=== PATIENT | female | born 1960 | race Native Hawaiian/Other Pacific Islander ===

== ENCOUNTER 2017-02-03 22:34 | Emergency (ER) | payer BC, OTHER ==
[~2017-02-03] VITALS: Ht 162.6 cm; Wt 74.8 kg
[~2017-02-03 22:34] MED LIST: DIAZ5TAB PO
[2017-02-03] MEDS ORDERED: ONDANSETRON 4 MG/2 ML VIAL IV ONE (23:15)
[2017-02-03] MEDS ORDERED: MORPHINE SULFATE 2 MG/1 ML DISP.SYRIN IV ONE (23:15)
[2017-02-03] MEDS ORDERED: PANTOPRAZOLE SODIUM 40 MG VIAL IV ONE (23:15)
[2017-02-03] MEDS ORDERED: DEXAMETHASONE SOD PHOSPHATE 4 MG INJ IV ONE (23:15)
[2017-02-03] MEDS ORDERED: DEXAMETHASONE SOD PHOSPHATE 4 MG INJ ONE (23:25)
[2017-02-03] MEDS ORDERED: ONDANSETRON 4 MG/2 ML VIAL ONE (23:25)
[2017-02-03] MEDS ORDERED: PANTOPRAZOLE SODIUM 40 MG VIAL ONE (23:25)
[2017-02-03] MEDS ORDERED: MORPHINE SULFATE 2 MG/1 ML DISP.SYRIN ONE (23:25)
[2017-02-03 23:34] LABS: HEMATOCRIT 30.5 % (37-47); HEMOGLOBIN 9.2 G/DL (12.0-16.0); MEAN CORPUSCULAR HEMOGLOBIN 17.2 UUG (27.0-31.0); MEAN CORPUSCULAR HGB CONC 30 g/dL (32.0-37.0); MEAN CORPUSCULAR VOLUME 57.1 FL (81.0-99.0); PLATELET COUNT (AUTO) 186 K/UL (150-450); RED BLOOD CELL COUNT(AUTO) 5.35 MIL/UL (4.2-5.4)
[2017-02-03 23:38] LABS: BILIRUBIN,DIRECT 0.1 mg/dL (0.0-0.2); BILIRUBIN,TOTAL 0.6 mg/dL (0.2-1.0); CREATININE 0.9 mg/dL (0.6-1.3); POTASSIUM 3.7 mmol/L (3.5-5.1); TOTAL PROTEIN, SERUM 6.9 g/dL (6.4-8.2)
[2017-02-03] MEDS ORDERED: diphenhydrAMINE 50 MG/1 ML VIAL IV ONE (23:45)
[2017-02-03] MEDS ORDERED: METOCLOPRAMIDE HCL 10 MG/2 ML VIAL ONE (23:45)
[2017-02-03] MEDS ORDERED: METOCLOPRAMIDE HCL 10 MG/2 ML VIAL IV ONE (23:45)
[2017-02-03] MEDS ORDERED: diphenhydrAMINE 50 MG/1 ML VIAL ONE (23:45)
[2017-02-03] MEDS ORDERED: MORPHINE SULFATE 4 MG/1 ML DISP.SYRIN IV ONE (23:45)
[2017-02-03] MEDS ORDERED: MORPHINE SULFATE 4 MG/1 ML DISP.SYRIN ONE (23:57)
[2017-02-04 00:15] LABS: BAND % (MANUAL) 1 % (0-10); EOSINOPHILS % (MANUAL) 4 % (0-8); LYMPHOCYTES % (MANUAL) 43 % (20-40); METAMYELOCYTES % 1 % (0-1); MONOCYTES % (MANUAL) 2 % (2-10); NEUTROPHILS % (MANUAL) 49 % (42-75)
== END 2017-02-04 01:39 | disposition home or self-care (01) ==
LOC: ER 22:35
DX: M25.412 Effusion, left shoulder (principal); D56.9 Thalassemia, unspecified; Z90.49 Acquired absence of other specified parts of digestive tract; Z88.1 Allergy status to other antibiotic agents; Z88.2 Allergy status to sulfonamides
CPT/HCPCS: 36415; 70030-TC; 71010; 73030; 85025; A4663; C9113; J1100; J1200; J2270; J2405; J2765

== ENCOUNTER 2017-06-25 11:17 | Emergency (ER) | payer BC, OTHER ==
[~2017-06-25] VITALS: Ht 167.6 cm; Wt 74.8 kg
--- NOTE | 2017-06-25 14:11 | NUR ---
MD is at bedside evalauating the patient, pending MD orders at this time
[2017-06-25] MEDS ORDERED: KETOROLAC TROMETHAMINE 60 MG INJ IM ONE ×2 (14:14→14:39)
[2017-06-25] MEDS ORDERED: HYDROCODONE/APAP 5-325MG TABLET PO ONE (14:15)
[2017-06-25] MEDS ORDERED: HYDROCODONE/APAP 5-325MG TABLET ONE (14:39)
--- NOTE | 2017-06-25 15:26 | NUR ---
Patient is resting comfortably in bed with eyes closed, decreased back pains expressed, pending disposition
--- NOTE | 2017-06-25 16:29 | NUR ---
MSE COMPLETED, PT D/C'D HOME, ACI/RX X 2 AND WORK NOTE GIVEN. PT AMBULATED W/O DIFF/TOOK ALL BELONGINGS.
[2017-06-25 16:31] VITALS: BP 150/78
== END 2017-06-25 16:31 | disposition home or self-care (01) ==
LOC: ER 11:18
DX: S33.5XXA Sprain of ligaments of lumbar spine, initial encounter (principal); S30.0XXA Contusion of lower back and pelvis, initial encounter; D56.9 Thalassemia, unspecified; Z88.1 Allergy status to other antibiotic agents; Z88.2 Allergy status to sulfonamides; W01.0XXA Fall on same level from slipping, tripping and stumbling without subsequent striking against object, initial encounter; Y92.89 Other specified places as the place of occurrence of the external cause; Y93.89 Activity, other specified; Y99.8 Other external cause status
CPT/HCPCS: 72100; 72220; 96372; 99284; A4663; J1885

== ENCOUNTER 2017-10-20 11:24 | Outpatient (CLI) | payer BC, OTHER ==
[2017-10-20 12:32] LABS: *BILIRUBIN,URIN NEGATIVE (NEGATIVE); *BLOOD, URINE NEGATIVE (NEGATIVE); *CLARITY,URINE CLEAR (CLEAR); *COLOR,URINE YELLOW (YELLOW); *KETONES,URINE NEGATIVE (NEGATIVE); *PROTEIN,URINE NEGATIVE (NEGATIVE); *UROBILINOGEN,URINE 0.2 E.U./dl (NORMAL); LEUKOCYTE ESTERASE ,URINE 1+ (NEGATIVE); NITRITE, URINE NEGATIVE (NEGATIVE); PH,URINE 6.5 (5.0-8.0); UGLUCOSE NEGATIVE (NEGATIVE)
[2017-10-20 12:43] LABS: BASOPHILS % (AUTO) 0.5 % (0.0-2.0); EOSINOPHILS # (AUTO) 0.2 K/uL (0.0-0.7); HEMATOCRIT 30.1 % (31.2-41.9); HEMOGLOBIN 9.2 g/dL (10.9-14.3); LYMPHOCYTES # (AUTO) 2.4 K/uL (20.0-40.0); LYMPHOCYTES % (AUTO) 46.9 % (20.5-51.5); MEAN CORPUSCULAR HGB CONC 31 g/dL (32.3-35.6); MONOCYTES # (AUTO) 0.3 K/uL (2.0-10.0); MONOCYTES % (AUTO) 5.8 % (0.0-11.0); NEUTROPHILS # (AUTO) 2.2 K/uL (1.8-8.9); NEUTROPHILS % (AUTO) 43.8 % (38.5-71.5); RED BLOOD CELL COUNT(AUTO) 5.41 MIL/uL (3.63-4.92)
[2017-10-20 12:44] LABS: BACTERIA,URINE NONE SEEN /HPF (NONE SEEN); RBC,URINE 0-3 /HPF (0-3); SQUAMOUS EPITHELIAL CELL,UR FEW /HPF (NONE SEEN)
[2017-10-20 12:51] LABS: MEAN CORPUSCULAR VOLUME 55.6 fL (75.5-95.3); PLATELET COUNT (AUTO) 207 K/uL (179-408); WHITE BLOOD COUNT (AUTO) 5.1 K/uL (3.8-11.8)
[2017-10-20 13:13] LABS: THYROID STIMULATING HORMONE 2.046 mIU/mL (0.358-3.740)
[2017-10-20 13:28] LABS: BILIRUBIN,TOTAL 0.9 mg/dL (0.2-1.0); CREATININE 0.7 mg/dL (0.6-1.3); TOTAL PROTEIN, SERUM 7.5 g/dL (6.4-8.2); URIC ACID 5.8 mg/dL (2.6-6.0)
[2017-10-20 13:33] LABS: EOSINOPHILS % (MANUAL) 1 % (0-8); LYMPHOCYTES % (MANUAL) 46 % (20-40); MONOCYTES % (MANUAL) 6 % (2-10); NEUTROPHILS % (MANUAL) 47 % (42-75)
[2017-10-21 05:10] LABS: VIT D, 25-HYDROXY 14.7 ng/mL (30.0-100.0)
== END 2017-10-21 23:59 | disposition home or self-care (01) ==
LOC: LAB 11:24
PROVIDERS: ATTEND Internal Medicine
DX: Z00.01 Encounter for general adult medical examination with abnormal findings (principal)
CPT/HCPCS: 36415; 82306; 82746; 83550; 84443; 84480; 84550; 85025

== ENCOUNTER 2017-12-24 22:14 | Emergency (ER) | payer BC, OTHER ==
[~2017-12-24] VITALS: Ht 162.6 cm; Wt 74.8 kg
--- NOTE | 2017-12-24 22:18 | NUR ---
DR DA MENDEZ MD AT BEDSIDE FOR MSE.
[2017-12-24] MEDS ORDERED: IV NORMAL SALINE 1000 ML BAG IV ONE (22:30)
[2017-12-24] MEDS ORDERED: ONDANSETRON 4 MG/2 ML VIAL IV ONE (22:30)
--- NOTE | 2017-12-24 22:40 | NUR ---
LAB AT PT BEDSIDE FOR BLOOD DRAW.
[2017-12-24] MEDS ORDERED: ONDANSETRON 4 MG/2 ML VIAL ONE ×2 (22:48→23:34)
[2017-12-24 22:59] LABS: BILIRUBIN,DIRECT 0.2 mg/dL (0.0-0.2); BILIRUBIN,TOTAL 0.8 mg/dL (0.2-1.0); CREATININE 0.7 mg/dL (0.6-1.3); POTASSIUM 4.1 mmol/L (3.5-5.1); TOTAL PROTEIN, SERUM 7.1 g/dL (6.4-8.2)
[2017-12-24 23:01] LABS: BASOPHILS % (AUTO) 0.4 % (0.0-2.0); EOSINOPHILS % (AUTO) 0.8 % (0.0-7.0); HEMATOCRIT 29.8 % (31.2-41.9); HEMOGLOBIN 8.8 g/dL (10.9-14.3); LYMPHOCYTES # (AUTO) 2.7 K/uL (20.0-40.0); LYMPHOCYTES % (AUTO) 55.4 % (20.5-51.5); MEAN CORPUSCULAR HEMOGLOBIN 16.3 uug (24.7-32.8); MEAN CORPUSCULAR VOLUME 55.1 fL (75.5-95.3); MONOCYTES # (AUTO) 0.2 K/uL (2.0-10.0); MONOCYTES % (AUTO) 3.3 % (0.0-11.0); NEUTROPHILS % (AUTO) 40.1 % (38.5-71.5); PLATELET COUNT (AUTO) 181 K/uL (179-408); RED BLOOD CELL COUNT(AUTO) 5.42 MIL/uL (3.63-4.92); WHITE BLOOD COUNT (AUTO) 4.9 K/uL (3.8-11.8)
[2017-12-24 23:12] LABS: MEAN CORPUSCULAR HGB CONC 31 g/dL (32.3-35.6)
[2017-12-24] MEDS ORDERED: ONDANSETRON IV *ER 4 MG/2 ML VIAL IV ONE (23:30)
[2017-12-24] MEDS ORDERED: KETOROLAC TROMETHAMINE 30 MG INJ IVP ONE (23:30)
[2017-12-24] MEDS ORDERED: KETOROLAC TROMETHAMINE 30 MG INJ ONE (23:34)
--- NOTE | 2017-12-25 00:09 | NUR ---
Patient discharged to home in stable conditon. Written and verbal after care instructions given. Patient verbalizes understanding of instructions. IV removed, w/ catheter intact. Pressure applied to site. No bleeding noted. Pt took all personal belongings.
[2017-12-25 00:21] LABS: BAND % (MANUAL) 2 % (0-10); LYMPHOCYTES % (MANUAL) 30 % (20-40); METAMYELOCYTES % 1 % (0-1); MONOCYTES % (MANUAL) 2 % (2-10); NEUTROPHILS % (MANUAL) 65 % (42-75)
[2017-12-25 00:41] VITALS: BP 125/76
== END 2017-12-25 00:41 | disposition home or self-care (01) ==
LOC: ER 22:17
DX: G43.909 Migraine, unspecified, not intractable, without status migrainosus (principal); Z90.49 Acquired absence of other specified parts of digestive tract; Z88.2 Allergy status to sulfonamides; Z88.1 Allergy status to other antibiotic agents
CPT/HCPCS: 36415; 80048; 80076; 83690; 85025; 96361; 96374; 96375; 96376; 99284; A4663; J1885; J2405 ×2; J7030

== ENCOUNTER 2018-05-05 19:44 | Emergency (ER) | payer BC, OTHER ==
[~2018-05-05] VITALS: Ht 160 cm; Wt 77.1 kg
[2018-05-05] MEDS ORDERED: HYDROMORPHONE 2 MG/1 ML DISP.SYRIN ONE (20:15)
[2018-05-05] MEDS ORDERED: HYDROMORPHONE 1 MG/1 ML DISP.SYRIN IM ONE (20:15)
[2018-05-05] MEDS ORDERED: ONDANSETRON 4 MG/2 ML VIAL ONE (20:15)
[2018-05-05] MEDS ORDERED: ONDANSETRON 4 MG/2 ML VIAL IM ONE (20:15)
--- NOTE | 2018-05-05 20:24 | NUR ---
Patient discharged to home in stable conditon. Written and verbal after care instructions given. Patient verbalizes understanding of instructions.
== END 2018-05-05 20:24 | disposition home or self-care (01) ==
LOC: ER 19:46
DX: M25.512 Pain in left shoulder (principal); Z90.49 Acquired absence of other specified parts of digestive tract; Z88.2 Allergy status to sulfonamides; Z88.1 Allergy status to other antibiotic agents
CPT/HCPCS: 96372 ×2; 99284; J1170; J2405; A4663

== ENCOUNTER 2018-09-14 10:04 | Outpatient (CLI) | payer BC, OTHER ==
[2018-09-14 10:41] LABS: *BILIRUBIN,URIN NEGATIVE (NEGATIVE); *BLOOD, URINE NEGATIVE (NEGATIVE); *CLARITY,URINE CLEAR (CLEAR); *COLOR,URINE LIGHT YELLOW (YELLOW); *KETONES,URINE NEGATIVE (NEGATIVE); *UROBILINOGEN,URINE 0.2 E.U./dl (NORMAL); LEUKOCYTE ESTERASE ,URINE TRACE (NEGATIVE); NITRITE, URINE NEGATIVE (NEGATIVE); PH,URINE 5.5 (5.0-8.0); UGLUCOSE NEGATIVE (NEGATIVE)
[2018-09-14 10:48] LABS: HEMOGLOBIN 8.9 g/dL (10.9-14.3)
[2018-09-14 11:01] LABS: SQUAMOUS EPITHELIAL CELL,UR FEW /HPF (NONE SEEN)
[2018-09-14 11:02] LABS: MUCUS,URINE FEW /LPF (0-FEW)
[2018-09-14 11:03] LABS: BACTERIA,URINE NONE SEEN /HPF (NONE SEEN); RBC,URINE 0-3 /HPF (0-3)
[2018-09-14 11:04] LABS: THYROID STIMULATING HORMONE 1.901 mIU/mL (0.358-3.740)
[2018-09-14 11:20] LABS: BILIRUBIN,TOTAL 0.6 mg/dL (0.2-1.0); CREATININE 0.7 mg/dL (0.6-1.3); POTASSIUM 3.8 mmol/L (3.5-5.1); TOTAL PROTEIN, SERUM 7.4 g/dL (6.4-8.2)
[2018-09-14 11:24] LABS: HEMATOCRIT 29.1 % (31.2-41.9); MEAN CORPUSCULAR HGB CONC 31 g/dL (32.3-35.6); MEAN CORPUSCULAR VOLUME 55.4 fL (75.5-95.3); RED BLOOD CELL COUNT(AUTO) 5.26 MIL/uL (3.63-4.92)
[2018-09-14 11:58] LABS: LYMPHOCYTES % (MANUAL) 40 % (20-40); NEUTROPHILS % (MANUAL) 55 % (42-75); PLATELET COUNT (AUTO) 217 K/uL (179-408)
[2018-09-14 11:59] LABS: EOSINOPHILS % (MANUAL) 2 % (0-8); MONOCYTES % (MANUAL) 1 % (2-10)
[2018-09-20 09:06] LABS: *VITAMIN D 25-OH VIT D 13 ng/mL (.); *VITAMIN D 25-OH, D2 <1.0 ng/mL (.); *VITAMIN D 25-OH, D3 13 ng/mL (.)
== END 2018-09-14 23:59 | disposition home or self-care (01) ==
LOC: LAB 10:04
DX: R53.83 Other fatigue (principal); R05 Cough
CPT/HCPCS: 36415; 71046; 83550; 84443; 84481; 85025

== ENCOUNTER 2018-10-02 09:33 | Outpatient (CLI) | payer BC, OTHER | END 2018-10-02 23:59 | disposition home or self-care (01) | LOC: RAD 09:33 | PROVIDERS: ATTEND Internal Medicine | DX: M79.89 Other specified soft tissue disorders (principal) | CPT/HCPCS: 73562 ==

== ENCOUNTER 2019-05-12 05:21 | Emergency (ER) | payer BC, OTHER ==
[~2019-05-12] VITALS: Ht 165.1 cm; Wt 72.1 kg
[2019-05-12] MEDS ORDERED: DIPHENOXYLATE HCL/ATROP SULF TABLET PO ONE (05:30)
[2019-05-12] MEDS ORDERED: DIPHENOXYLATE HCL/ATROP SULF TABLET ONE (05:33)
[2019-05-12] MEDS ORDERED: MORPHINE SULFATE 4 MG/1 ML DISP.SYRIN ONE (05:40)
[2019-05-12] MEDS ORDERED: MORPHINE SULFATE 2 MG/1 ML DISP.SYRIN ONE (05:40)
[2019-05-12] MEDS ORDERED: ONDANSETRON 4 MG/2 ML VIAL ONE (05:40)
[2019-05-12] MEDS ORDERED: DICYCLOMINE HCL LIQ 10 MG/5 ML UDC ONE (05:40)
[2019-05-12] MEDS ORDERED: IV LACTATED RINGERS SOLUTION 1,000 ML IV ONE (05:42)
[2019-05-12] MEDS ORDERED: ONDANSETRON 4 MG/2 ML VIAL IV ONE (05:45)
[2019-05-12] MEDS ORDERED: MORPHINE SULFATE 2 MG/1 ML DISP.SYRIN IV ONE (05:45)
[2019-05-12] MEDS ORDERED: DICYCLOMINE HCL LIQ 10 MG/5 ML UDC PO ONE (05:45)
[2019-05-12 06:12] LABS: BASOPHILS % (AUTO) 0.6 % (0.0-2.0); EOSINOPHILS # (AUTO) 0.1 K/uL (0.0-0.7); EOSINOPHILS % (AUTO) 1.2 % (0.0-7.0); HEMATOCRIT 32.6 % (31.2-41.9); HEMOGLOBIN 9.8 g/dL (10.9-14.3); LYMPHOCYTES # (AUTO) 2.7 K/uL (20.0-40.0); LYMPHOCYTES % (AUTO) 46.2 % (20.5-51.5); MEAN CORPUSCULAR HEMOGLOBIN 16.6 uug (24.7-32.8); MEAN CORPUSCULAR HGB CONC 30 g/dL (32.3-35.6); MEAN CORPUSCULAR VOLUME 55.2 fL (75.5-95.3); MONOCYTES # (AUTO) 0.4 K/uL (2.0-10.0); MONOCYTES % (AUTO) 6.4 % (0.0-11.0); NEUTROPHILS # (AUTO) 2.7 K/uL (1.8-8.9); NEUTROPHILS % (AUTO) 45.6 % (38.5-71.5); PLATELET COUNT (AUTO) 237 K/uL (179-408); RED BLOOD CELL COUNT(AUTO) 5.91 MIL/uL (3.63-4.92); WHITE BLOOD COUNT (AUTO) 5.9 K/uL (3.8-11.8)
[2019-05-12 06:26] LABS: CREATININE 0.8 mg/dL (0.6-1.3); POTASSIUM 3.5 mmol/L (3.5-5.1)
[2019-05-12 06:31] LABS: TOTAL PROTEIN, SERUM 7.7 g/dL (6.4-8.2)
[2019-05-12 06:32] LABS: BILIRUBIN,DIRECT 0.2 mg/dL (0.0-0.2)
[2019-05-12] MEDS ORDERED: SWABABLE VALVE TRANSFER SET EA MC ONE (06:37)
[2019-05-12] MEDS ORDERED: IOHEXOL 300MG/ML 100 ML INFUS..BTL ONE (06:37)
[2019-05-12] MEDS ORDERED: IV NORMAL SALINE 250 ML IV ONE (06:37)
--- NOTE | 2019-05-12 07:01 | NUR ---
Report given to Nilam BARTH
--- NOTE | 2019-05-12 07:14 | NUR ---
Pt back from CT, no c/o pain at this time.
--- NOTE | 2019-05-12 07:15 | NUR ---
IV fluid completed at 0715.
[2019-05-12 08:00] VITALS: BP 122/71
--- NOTE | 2019-05-12 08:00 | NUR ---
IV removed. Catheter intact and site benign. Pressure and 4x4 gauze applied to site. No bleeding noted.
[2019-05-12] MEDS ORDERED: LOPE2CAP40 PO (08:59)
--- NOTE | 2019-05-16 09:00 | NUR ---
LATE ENTRY: 05/12/19 LR 1000ML IV BOLUS GIVEN OVER 1HR ORDERED. START TIME: 545 COMPLETED: 645
== END 2019-05-12 08:07 | disposition home or self-care (01) ==
LOC: ER 05:21
DX: R19.7 Diarrhea, unspecified (principal); R10.33 Periumbilical pain; Z90.49 Acquired absence of other specified parts of digestive tract; Z88.2 Allergy status to sulfonamides; Z88.1 Allergy status to other antibiotic agents
CPT/HCPCS: 36415; 74177; 80048; 80076; 83690; 85025; 96361; 96374; 96375; 99284; J2270 ×2; J2405; J7120; Q9967; A4663; J7030; J7050

== ENCOUNTER 2019-05-12 08:52 | Inpatient (IN) | payer BC, OTHER ==
[~2019-05-12] VITALS: Ht 162.6 cm; Wt 73.5 kg
[2019-05-12] MEDS ORDERED: LOPE2CAP40 PO (08:59)
--- NOTE | 2019-05-12 09:03 | NUR ---
Dr Mccain at the bedside for MSE.
[2019-05-12] MEDS ORDERED: IV NORMAL SALINE 1000 ML BAG IV ONE ×2 (09:15→10:30)
--- NOTE | 2019-05-12 10:08 | NUR ---
Patient is resting comfortably in bed with eyes closed, NAD noted.
[2019-05-12] MEDS ORDERED: KETOROLAC TROMETHAMINE 30 MG INJ ONE (10:40)
[2019-05-12] MEDS ORDERED: KETOROLAC TROMETHAMINE 30 MG INJ IVP ONE (10:45)
--- NOTE | 2019-05-12 13:00 | NUR ---
received from ER awake alert and oriented per maco with c/o diarrhea and abdominal pain x 3 days after eating [place] food, no nausea/vomiting, tele applied- SR 80's, routine admission care rendered, initial assessment done, expalined plan of care- verbalized understanding, safety measures initiated, call light within reach
[2019-05-12 13:13] VITALS: BP 119/60
[2019-05-12] MEDS ORDERED: Z GUARD REMEDY PASTE 57 GM TUBE TOP PRN (13:15)
[2019-05-12] MEDS ORDERED: MORPHINE SULFATE 2 MG/1 ML DISP.SYRIN IV PRN (13:15)
[2019-05-12] MEDS ORDERED: MAGNESIUM HYDROXIDE 30 ML LIQUID UDC PO PRN (13:15)
[2019-05-12] MEDS ORDERED: ONDANSETRON 4 MG/2 ML VIAL IV PRN (13:15)
[2019-05-12] MEDS ORDERED: ACETAMINOPHEN 325 MG TABLET PO PRN (13:15)
[2019-05-12 13:28] LABS: IRON, SERUM 51 ug/dL (50-175)
[2019-05-12] MEDS ORDERED: METRONIDAZOLE 500 MG/NS 100ML 500 MG in PREMIXED 1 EACH IV SCH (14:00)
[2019-05-12] MEDS: METRONIDAZOLE 500 MG TABLET PO SCH ×2 (14:39→21:14)
[2019-05-12] MEDS: IV NS 1000 ML 1,000 ML IV PRN (14:48)
[2019-05-12 15:30] VITALS: BP 114/46
--- NOTE | 2019-05-12 15:30 | NUR ---
stool specimen sent to lab
--- NOTE | 2019-05-12 18:00 | NUR ---
refused dvt pumps
[2019-05-12 18:47] VITALS: BP_SYST 112; BP_SYST 99; BP_DIAS 48; BP_DIAS 54
[2019-05-12 18:48] VITALS: BP 118/55
--- NOTE | 2019-05-12 18:52 | NUR ---
had only one liquid stool this shift, no nausea and vomiting noted, all needs attended and met, call light within reach
--- NOTE | 2019-05-12 19:30 | NUR ---
Received pt in bed, awake alert, in no acute signs of distress. No c/o pain at this time.
[2019-05-12 19:53] VITALS: BP 103/50
[2019-05-12] MEDS: CIPROFLOXACIN HCL 250 MG TABLET PO SCH (20:09)
--- NOTE | 2019-05-13 01:00 | NUR ---
SR on tele. Hands off report to Jaimee michael.
[2019-05-13] MEDS: IV NS 1000 ML 1,000 ML IV PRN ×2 (04:37→18:07)
[2019-05-13 04:47] VITALS: BP 111/57
[2019-05-13] MEDS: METRONIDAZOLE 500 MG TABLET PO SCH ×3 (05:35→21:26)
[2019-05-13 07:29] LABS: MEAN CORPUSCULAR HEMOGLOBIN 16.7 uug (24.7-32.8); MEAN CORPUSCULAR HGB CONC 30 g/dL (32.3-35.6); PLATELET COUNT (AUTO) 173 K/uL (179-408); RED BLOOD CELL COUNT(AUTO) 4.67 MIL/uL (3.63-4.92)
[2019-05-13 07:33] LABS: HEMATOCRIT 25.7 % (31.2-41.9); HEMOGLOBIN 7.8 g/dL (10.9-14.3); WHITE BLOOD COUNT (AUTO) 3.1 K/uL (3.8-11.8)
[2019-05-13 07:36] LABS: THYROID STIMULATING HORMONE 1.831 mIU/mL (0.358-3.740)
[2019-05-13] MEDS: CIPROFLOXACIN HCL 250 MG TABLET PO SCH ×2 (08:13→21:28)
[2019-05-13] MEDS: HYDROCODONE/APAP 5-325MG TABLET PO PRN (08:14)
[2019-05-13 08:39] LABS: CREATININE 0.6 mg/dL (0.6-1.3); MAGNESIUM 1.6 mg/dL (1.8-2.4); POTASSIUM 3.7 mmol/L (3.5-5.1)
[2019-05-13] MEDS: MAGNESIUM SULFATE/D5W 100 ML IV SCH ×2 (11:07→12:14)
[2019-05-13 11:12] LABS: EOSINOPHILS % (MANUAL) 2 % (0-8); LYMPHOCYTES % (MANUAL) 47 % (20-40); MONOCYTES % (MANUAL) 5 % (2-10); NEUTROPHILS % (MANUAL) 45 % (42-75)
[2019-05-13 11:19] LABS: REACTIVE LYMPHOCYTES 1 % (0-0)
[2019-05-13 11:41] VITALS: BP 140/59
[2019-05-13 14:03] LABS: BILIRUBIN,DIRECT 0.2 mg/dL (0.0-0.2); BILIRUBIN,TOTAL 0.6 mg/dL (0.2-1.0)
[2019-05-13 15:52] VITALS: BP 122/46
--- NOTE | 2019-05-13 17:18 | NUR ---
Patient alert and oriented, ambulatory. No distress noted or complaints of pain. PRN [place] given x1 this morning for abdominal pain, relieved. Continues to have episodes of diarrhea. Denies any n/v. [place] 1.6 replaced today via IV. Abdominal ultrasound done today. Pending midline placement, IV fluids held r/t IV infiltrating and multiple PIV attempts. Ordered and warehouse stocker made aware. End of shift chart check done, will endorse care to oncoming shift.
[2019-05-13 18:06] LABS: HEMATOCRIT 27.2 % (31.2-41.9); HEMOGLOBIN 8.3 g/dL (10.9-14.3)
[2019-05-13 19:53] VITALS: BP 124/58
[2019-05-14] MEDS: IV NS 1000 ML 1,000 ML IV PRN ×2 (01:12→15:17)
[2019-05-14 04:00] VITALS: BP 124/57
[2019-05-14] MEDS: METRONIDAZOLE 500 MG TABLET PO SCH ×3 (05:38→21:10)
[2019-05-14 06:51] LABS: HEMATOCRIT 25.8 % (31.2-41.9); HEMOGLOBIN 7.9 g/dL (10.9-14.3); MEAN CORPUSCULAR HEMOGLOBIN 16.6 uug (24.7-32.8); MEAN CORPUSCULAR HGB CONC 31 g/dL (32.3-35.6); MEAN CORPUSCULAR VOLUME 54.6 fL (75.5-95.3); RED BLOOD CELL COUNT(AUTO) 4.73 MIL/uL (3.63-4.92); WHITE BLOOD COUNT (AUTO) 4.3 K/uL (3.8-11.8)
[2019-05-14 06:54] LABS: CREATININE 0.7 mg/dL (0.6-1.3)
[2019-05-14 07:00] LABS: BILIRUBIN,DIRECT 0.1 mg/dL (0.0-0.2); BILIRUBIN,TOTAL 0.5 mg/dL (0.2-1.0); MAGNESIUM 1.9 mg/dL (1.8-2.4); TOTAL PROTEIN, SERUM 6.2 g/dL (6.4-8.2)
[2019-05-14 07:46] LABS: PLATELET COUNT (AUTO) 115 K/uL (179-408)
[2019-05-14 07:54] LABS: BAND % (MANUAL) 1 % (0-10); LYMPHOCYTES % (MANUAL) 33 % (20-40); NEUTROPHILS % (MANUAL) 61 % (42-75)
[2019-05-14 07:55] LABS: EOSINOPHILS % (MANUAL) 2 % (0-8); MONOCYTES % (MANUAL) 2 % (2-10); MYELOCYTES % 1 % (0-0)
--- NOTE | 2019-05-14 08:00 | NUR ---
Discussed plan of care with patient re: pain management and npo status for abd fiorella test. Pt agreeable with plan of care. Call light is within reach.
[2019-05-14] MEDS: CIPROFLOXACIN HCL 250 MG TABLET PO SCH ×2 (08:16→21:10)
[2019-05-14 09:53] LABS: *OCCULT BLOOD STOOL POSITIVE (NEGATIVE)
[2019-05-14] MEDS ORDERED: METR-147 PO (11:30)
[2019-05-14] MEDS ORDERED: CIPR250T4 PO (11:30)
[2019-05-14] MEDS ORDERED: DIPH1TAB PO (11:30)
[2019-05-14 11:35] VITALS: BP 131/52
[2019-05-14] MEDS: HYDROCODONE/APAP 5-325MG TABLET PO PRN (14:52)
[2019-05-14 16:32] VITALS: BP 117/58
--- NOTE | 2019-05-14 18:30 | NUR ---
Plan of care effective. Pt is to be NPO for egd tomorrow. consent signed. Call light is within reach.
--- NOTE | 2019-05-14 19:00 | NUR ---
PATIENT ALERT ORIENTED NO SOB NO CHEST PAIN, PATIENT HAS NO COMPLAIN OF PAIN AT THIS TIME. CONT TO MONITOR FOR DIARRHEA AND ABDOMINAL PAIN. PATIENT WAS INSTRUCTED THAT SHE'S GOING TO BE NPO AFTER MIDNIGHT, ABLE TO FOLLOW. CONT TO MONITOR.
[2019-05-14 19:52] VITALS: BP 112/42
[2019-05-15 00:24] VITALS: BP 121/56
[2019-05-15] MEDS: METRONIDAZOLE 500 MG TABLET PO SCH ×2 (05:45→14:12)
[2019-05-15 05:47] VITALS: BP 126/66
[2019-05-15] MEDS: HYDROCODONE/APAP 5-325MG TABLET PO PRN (05:50)
[2019-05-15 07:00] LABS: *BILIRUBIN,URIN NEGATIVE (NEGATIVE); *CLARITY,URINE CLEAR (CLEAR); *COLOR,URINE YELLOW (YELLOW); *KETONES,URINE NEGATIVE (NEGATIVE); *UROBILINOGEN,URINE 0.2 E.U./dl (NORMAL); LEUKOCYTE ESTERASE ,URINE NEGATIVE (NEGATIVE); NITRITE, URINE NEGATIVE (NEGATIVE); UGLUCOSE NEGATIVE (NEGATIVE)
[2019-05-15 07:05] LABS: *BLOOD, URINE NEGATIVE (NEGATIVE)
--- NOTE | 2019-05-15 07:18 | NUR ---
PATIENT ALERT ORIENTED, NO SOB NO CHEST PAIN, TELE MONITOR SINUS RYTHM AT THIS TIME. PATIENT HAS EPISODE OF DIARRHEA PER PATIENT. PATIENT CONT ABX FOR COLITIS, WITH NO ADVERSE REACTION NOTED. PATIENT R UPPER ARM MIDLINE WAS NOT FLUSHABLE, PLACE IV HEP LOCK ON L AC 20 GAUGE, FOR BACK UP IV LINE. FOR EGD, CONSENT WAS SIGNED BY PATIENT, REMAINS NPO AT THIS TIME. CONT TO MONITOR.
--- NOTE | 2019-05-15 07:30 | NUR ---
RECEIVED PATIENT IN BED RESTING, NO S/S OF ACUTE DISTRESS NOTED AT THIS TIME. IV INTACT AND PATENT WITH IV FLUIDS RUNNING AT 75 CC/HR AND MIDLINE ON RIGHT UPPER ARM. NO C/O PAIN AT THIS TIME. SAFETY AND COMFORT PROVIDED. CALL LIGHT WITHIN REACH.
[2019-05-15] MEDS: CIPROFLOXACIN HCL 250 MG TABLET PO SCH (08:05)
[2019-05-15 08:09] LABS: HEPATITIS A AB, IgM Negative (Negative); HEPATITIS A AB, TOTAL Positive (Negative); HEPATITIS B SURFACE AB Reactive (.); HEPATITIS B SURFACE AG Negative (Negative)
[2019-05-15] MEDS: IV NS 1000 ML 1,000 ML IV PRN (08:40)
[2019-05-15 09:42] LABS: CREATININE 0.7 mg/dL (0.6-1.3); POTASSIUM 3.6 mmol/L (3.5-5.1)
[2019-05-15 10:06] LABS: HEMATOCRIT 28.4 % (31.2-41.9); HEMOGLOBIN 8.7 g/dL (10.9-14.3); MEAN CORPUSCULAR HEMOGLOBIN 16.6 uug (24.7-32.8); MEAN CORPUSCULAR HGB CONC 31 g/dL (32.3-35.6); MEAN CORPUSCULAR VOLUME 54.4 fL (75.5-95.3); RED BLOOD CELL COUNT(AUTO) 5.22 MIL/uL (3.63-4.92)
[2019-05-15 10:48] LABS: PLATELET COUNT (AUTO) 136 K/uL (179-408)
[2019-05-15 10:53] LABS: EOSINOPHILS % (MANUAL) 2 % (0-8); LYMPHOCYTES % (MANUAL) 36 % (20-40); MONOCYTES % (MANUAL) 6 % (2-10); NEUTROPHILS % (MANUAL) 56 % (42-75)
--- NOTE | 2019-05-15 10:56 | NUR ---
patient left the unit for procedure.
[2019-05-15 11:20] VITALS: BP 133/60
[2019-05-15 13:06] LABS: AFP, TUMOR MARKER 4.1 ng/mL (0.0-8.3)
[2019-05-15 13:47] VITALS: BP 143/62
[2019-05-15 14:00] VITALS: BP 135/62
[2019-05-15 14:15] VITALS: BP 132/61
[2019-05-15 17:05] LABS: BILIRUBIN,DIRECT 0.2 mg/dL (0.0-0.2); BILIRUBIN,TOTAL 0.6 mg/dL (0.2-1.0); TOTAL PROTEIN, SERUM 6.9 g/dL (6.4-8.2)
--- NOTE | 2019-05-15 17:30 | NUR ---
patient discharge to home,via private car, discharge instruction given and verbalized understanding. no c/o pain and s/s of acute distress noted at this time. belongings accounted for and signed. IV and ID band removed, questions and concerns addressed.
[2019-05-16 07:06] LABS: HEPATITIS Be ANTIGEN Negative (Negative)
== END 2019-05-15 17:25 | disposition home or self-care (01) | DRG 641 ==
LOC: ER 08:52 → TELE3 12:38
PROVIDERS: ADMIT Nurse Practitioner Acute Care; ATTEND Nurse Practitioner Acute Care
PROC: 05HB33Z Insertion of Infusion Device into Right Basilic Vein, Percutaneous Approach (ICD-10-PCS; principal; 2019-05-13)
PROC: 0DB68ZX Excision of Stomach, Via Natural or Artificial Opening Endoscopic, Diagnostic (ICD-10-PCS; 2019-05-15)
DX: E86.0 Dehydration (principal); A05.9 Bacterial foodborne intoxication, unspecified; K21.9 Gastro-esophageal reflux disease without esophagitis; I95.1 Orthostatic hypotension; G90.8 Other disorders of autonomic nervous system; Z66 Do not resuscitate; Z80.8 Family history of malignant neoplasm of other organs or systems; Z90.49 Acquired absence of other specified parts of digestive tract; Z83.3 Family history of diabetes mellitus; Z82.49 Family history of ischemic heart disease and other diseases of the circulatory system; D56.3 Thalassemia minor; K44.9 Diaphragmatic hernia without obstruction or gangrene; K29.60 Other gastritis without bleeding; K76.0 Fatty (change of) liver, not elsewhere classified; D50.9 Iron deficiency anemia, unspecified
CPT/HCPCS: 36415; 36569; 70030-TC; 76700; 82105; 83550; 83735; 84100; 84443; 85018; 85025; 86625; 86705; 86706; 86708; 86709; 86803; 87046; 87340; 87350; 88342; 89055; 93005; 93307; 93880; A4217; A4663; G0378; J1885; J3475; J3490; J7030

== ENCOUNTER 2019-12-07 16:20 | Emergency (ER) | payer BC, OTHER ==
[~2019-12-07] VITALS: Ht 162.6 cm; Wt 72.6 kg
[~2019-12-07 16:20] MED LIST changes: +CIPR250T4 PO; -DIAZ5TAB PO; +DIPH1TAB PO; +METR-147 PO
[2019-12-07] MEDS ORDERED: AMOXicillin 250 MG CAPSULE PO ONE (17:00)
[2019-12-07] MEDS ORDERED: AMOXicillin 250 MG CAPSULE ONE (17:12)
[2019-12-07 17:13] LABS: EOSINOPHILS # (AUTO) 0.1 K/uL (0.0-0.7); EOSINOPHILS % (AUTO) 1.6 % (0.0-7.0); HEMATOCRIT 29.3 % (31.2-41.9); HEMOGLOBIN 8.9 g/dL (10.9-14.3); LYMPHOCYTES # (AUTO) 3.1 K/uL (20.0-40.0); LYMPHOCYTES % (AUTO) 62.5 % (20.5-51.5); MEAN CORPUSCULAR HEMOGLOBIN 16.8 uug (24.7-32.8); MEAN CORPUSCULAR HGB CONC 30 g/dL (32.3-35.6); MEAN CORPUSCULAR VOLUME 55.5 fL (75.5-95.3); MONOCYTES # (AUTO) 0.2 K/uL (2.0-10.0); MONOCYTES % (AUTO) 3.8 % (0.0-11.0); NEUTROPHILS # (AUTO) 1.5 K/uL (1.8-8.9); NEUTROPHILS % (AUTO) 31.1 % (38.5-71.5); PLATELET COUNT (AUTO) 205 K/uL (179-408); RED BLOOD CELL COUNT(AUTO) 5.28 MIL/uL (3.63-4.92)
[2019-12-07 17:26] LABS: BILIRUBIN,DIRECT 0.1 mg/dL (0.0-0.2); BILIRUBIN,TOTAL 0.6 mg/dL (0.2-1.0); CREATININE 0.9 mg/dL (0.6-1.3); POTASSIUM 3.7 mmol/L (3.5-5.1); TOTAL PROTEIN, SERUM 6.9 g/dL (6.4-8.2)
[2019-12-07] MEDS ORDERED: MECLIZINE HCL 25 MG TABLET PO ONE (18:00)
[2019-12-07] MEDS ORDERED: MECLIZINE HCL 25 MG TABLET ONE (18:05)
--- NOTE | 2019-12-07 18:08 | NUR ---
Patient discharged to home in stable condition and steady gait. Written and verbal after care instructions given to patient. Patient verbalized understanding & compliance of instructions. Stressed follow up or return to ER for worsening s/s.
[2019-12-07 18:38] LABS: EOSINOPHILS % (MANUAL) 2 % (0-8); LYMPHOCYTES % (MANUAL) 46 % (20-40); MONOCYTES % (MANUAL) 5 % (2-10); NEUTROPHILS % (MANUAL) 44 % (42-75)
== END 2019-12-07 18:10 | disposition home or self-care (01) ==
LOC: ER 16:24
DX: H66.93 Otitis media, unspecified, bilateral (principal); D56.9 Thalassemia, unspecified; Z83.3 Family history of diabetes mellitus; Z82.49 Family history of ischemic heart disease and other diseases of the circulatory system; Z79.899 Other long term (current) drug therapy; D63.8 Anemia in other chronic diseases classified elsewhere
CPT/HCPCS: 36415; 70030-TC; 85025; 93005; A4663; J8597

== ENCOUNTER 2020-01-30 09:30 | Emergency (ER) | payer BC, OTHER ==
[~2020-01-30] VITALS: Ht 162.6 cm; Wt 74.8 kg
[2020-01-30] MEDS ORDERED: ASPI81TA31 PO (09:38)
--- NOTE | 2020-01-30 09:42 | NUR ---
PT IS IN ROOM #2A. DR DUEÑAS EVALUATED THE PT.
[2020-01-30] MEDS ORDERED: KETOROLAC TROMETHAMINE 30 MG INJ IM ONE (09:45)
[2020-01-30] MEDS ORDERED: KETOROLAC TROMETHAMINE 30 MG INJ ONE (09:49)
[2020-01-30 10:29] VITALS: BP 133/76
--- NOTE | 2020-01-30 10:29 | NUR ---
PT WAS D/C TO HOME. D/C INSTRUCTIONS GIVEN TO THE PT BY DR DUEÑAS.
== END 2020-01-30 10:46 | disposition home or self-care (01) ==
LOC: ER 09:30
DX: M25.562 Pain in left knee (principal); M25.552 Pain in left hip; Z91.81 History of falling; D56.9 Thalassemia, unspecified; Z83.3 Family history of diabetes mellitus; Z82.49 Family history of ischemic heart disease and other diseases of the circulatory system
CPT/HCPCS: 73502; 73564; 96372; 99284; J1885; A4663

== ENCOUNTER 2020-06-22 07:42 | Outpatient (CLI) | payer BC, OTHER ==
[~2020-06-22 07:42] MED LIST changes: +ASPI81TA31 PO; -CIPR250T4 PO; -DIPH1TAB PO; -METR-147 PO
== END 2020-06-22 23:59 | disposition home or self-care (01) ==
LOC: LAB 07:42
PROVIDERS: ATTEND Ophthalmology
DX: Z01.812 Encounter for preprocedural laboratory examination (principal); Z20.828 Contact with and (suspected) exposure to other viral communicable diseases; H26.9 Unspecified cataract

== ENCOUNTER 2020-06-24 06:19 | Day surgery (SDC) | payer BC, OTHER ==
[2020-06-24] MEDS ORDERED: ONDANSETRON 4 MG/2 ML VIAL IV ONE (06:20)
[2020-06-24] MEDS ORDERED: KETOROLAC 0.5% OPHT DROP 3 ML BOTTLE ONE (07:13)
[2020-06-24] MEDS ORDERED: CIPROFLOXACIN 0.3% OPHT DROP 2.5 ML BOTTLE ONE (07:13)
[2020-06-24] MEDS ORDERED: PHENYLEPHRINE 2.5% OPHT DROP 2 ML BOTTLE ONE (07:14)
[2020-06-24] MEDS ORDERED: CYCLOPENTOLATE 2% OPHT DROP 2 ML BOTTLE ONE (07:14)
[2020-06-24] MEDS ORDERED: TROPICAMIDE 1% OPHT DROP 3 ML BOTTLE ONE (07:14)
[2020-06-24] MEDS ORDERED: MOXIFLOXACIN HCL 3 ML OPHT DROPS ONE (07:16)
[2020-06-24] MEDS ORDERED: LIDOCAINE-MPF 2% 5 ML VIAL ONE (07:17)
[2020-06-24] MEDS ORDERED: BALANCED SALT IRRIG SOLN COMB1 500 ML ONE (07:17)
[2020-06-24] MEDS ORDERED: BALANCED SALT IRRIG SOLN COMB2 15 ML IRRIG.SOLN ONE (07:17)
[2020-06-24] MEDS ORDERED: BUPIVACAINE PF 0.5% 30 ML VIAL ONE (07:17)
[2020-06-24] MEDS ORDERED: TIMOLOL MALEATE 0.5% OPHT DROP 5 ML BOTTLE ONE (07:17)
[2020-06-24] MEDS ORDERED: ACETYLCHOLINE CHLORIDE 1% OPHT 1 EA KIT ONE (07:17)
[2020-06-24] MEDS ORDERED: NEO/POLYMYX B/DEXAME OPHT OINT 3.5 GM TUBE ONE (07:17)
[2020-06-24] MEDS ORDERED: HYALURONATE SODIUM 12.8 MG/0.8 ML DISP.SYRIN ONE (07:18)
[2020-06-24] MEDS ORDERED: HYALURONIDASE,OVINE 200 UNITS/ML VIAL ONE (07:18)
[2020-06-24] MEDS ORDERED: FENTANYL CITRATE 100 MCG/2 ML AMPUL ONE (07:59)
[2020-06-24] MEDS ORDERED: BALANCED SALT IRRIG SOLN COMB1 500 ML, EPINEPHRINE-PF 1:1000 0.5 MG IO ONE ×2 (10:45)
== END 2020-06-24 10:15 | disposition home or self-care (01) ==
LOC: DS 06:19
PROVIDERS: ATTEND Ophthalmology
DX: H25.89 Other age-related cataract (principal); K21.9 Gastro-esophageal reflux disease without esophagitis; Z83.3 Family history of diabetes mellitus; Z88.2 Allergy status to sulfonamides; Z79.899 Other long term (current) drug therapy; Z88.8 Allergy status to other drugs, medicaments and biological substances; Z98.890 Other specified postprocedural states; Z80.3 Family history of malignant neoplasm of breast; Z88.1 Allergy status to other antibiotic agents
CPT/HCPCS: 66984; 71045; J0171; J2405; J3010; J3471; J3490 ×2; J7120; J7321; V2632; A4663

== ENCOUNTER 2020-07-13 07:03 | Outpatient (CLI) | payer BC, OTHER | END 2020-07-13 23:59 | disposition home or self-care (01) | LOC: LAB 07:03 | PROVIDERS: ATTEND Ophthalmology | DX: Z01.812 Encounter for preprocedural laboratory examination (principal); Z20.822 Contact with and (suspected) exposure to COVID-19 ==

== ENCOUNTER 2020-07-15 05:52 | Day surgery (SDC) | payer BC, OTHER ==
[2020-07-15] MEDS ORDERED: TROPICAMIDE 1% OPHT DROP 3 ML BOTTLE ONE (06:37)
[2020-07-15] MEDS ORDERED: KETOROLAC 0.5% OPHT DROP 3 ML BOTTLE ONE (06:37)
[2020-07-15] MEDS ORDERED: CIPROFLOXACIN 0.3% OPHT DROP 2.5 ML BOTTLE ONE (06:37)
[2020-07-15] MEDS ORDERED: CYCLOPENTOLATE 2% OPHT DROP 2 ML BOTTLE ONE (06:38)
[2020-07-15] MEDS ORDERED: PHENYLEPHRINE 2.5% OPHT DROP 2 ML BOTTLE ONE (06:38)
[2020-07-15] MEDS ORDERED: BALANCED SALT IRRIG SOLN COMB1 500 ML, EPINEPHRINE-PF 1:1000 0.5 MG IO ONE ×2 (07:00)
[2020-07-15] MEDS ORDERED: LIDOCAINE-MPF 2% 5 ML VIAL ONE (07:15)
[2020-07-15] MEDS ORDERED: MOXIFLOXACIN HCL 3 ML OPHT DROPS ONE (07:15)
[2020-07-15] MEDS ORDERED: NEO/POLYMYX B/DEXAME OPHT OINT 3.5 GM TUBE ONE (07:15)
[2020-07-15] MEDS ORDERED: TIMOLOL MALEATE 0.5% OPHT DROP 5 ML BOTTLE ONE (07:15)
[2020-07-15] MEDS ORDERED: BALANCED SALT IRRIG SOLN COMB2 15 ML IRRIG.SOLN ONE (07:16)
[2020-07-15] MEDS ORDERED: BUPIVACAINE PF 0.5% 30 ML VIAL ONE (07:16)
[2020-07-15] MEDS ORDERED: BALANCED SALT IRRIG SOLN COMB1 500 ML ONE (07:16)
[2020-07-15] MEDS ORDERED: ACETYLCHOLINE CHLORIDE 1% OPHT 1 EA KIT ONE (07:16)
[2020-07-15] MEDS ORDERED: HYALURONIDASE,OVINE 200 UNITS/ML VIAL ONE (07:17)
[2020-07-15] MEDS ORDERED: HYALURONATE SODIUM 12.8 MG/0.8 ML DISP.SYRIN ONE (07:17)
[2020-07-15 07:30] LABS: BILIRUBIN,TOTAL 0.7 mg/dL (0.2-1.0); CREATININE 0.8 mg/dL (0.6-1.3); POTASSIUM 4.2 mmol/L (3.5-5.1); TOTAL PROTEIN, SERUM 6.9 g/dL (6.4-8.2)
[2020-07-15] MEDS ORDERED: FENTANYL CITRATE 100 MCG/2 ML AMPUL ONE (07:40)
[2020-07-15 07:47] LABS: BASOPHILS # (AUTO) 0.1 K/uL (0.0-8.0); EOSINOPHILS # (AUTO) 0.1 K/uL (0.0-0.7); HEMOGLOBIN 9.2 g/dL (10.9-14.3); LYMPHOCYTES # (AUTO) 2.1 K/uL (20.0-40.0); MEAN CORPUSCULAR VOLUME 55.8 fL (75.5-95.3); MONOCYTES # (AUTO) 0.2 K/uL (2.0-10.0)
[2020-07-15 08:19] LABS: BASOPHILS % (AUTO) 1.3 % (0.0-2.0); EOSINOPHILS % (AUTO) 1.8 % (0.0-7.0); HEMATOCRIT 31.7 % (31.2-41.9); LYMPHOCYTES % (AUTO) 46.7 % (20.5-51.5); MEAN CORPUSCULAR HEMOGLOBIN 16.1 uug (24.7-32.8); MEAN CORPUSCULAR HGB CONC 29 g/dL (32.3-35.6); MONOCYTES % (AUTO) 5.6 % (0.0-11.0); NEUTROPHILS % (AUTO) 44.6 % (38.5-71.5); PLATELET COUNT (AUTO) 171 K/uL (179-408); RED BLOOD CELL COUNT(AUTO) 5.69 MIL/uL (3.63-4.92); WHITE BLOOD COUNT (AUTO) 4.4 K/uL (3.8-11.8)
[2020-07-15 18:10] LABS: BAND % (MANUAL) 1 % (0-10); EOSINOPHILS % (MANUAL) 2 % (0-8); LYMPHOCYTES % (MANUAL) 51 % (20-40); MONOCYTES % (MANUAL) 6 % (2-10); NEUTROPHILS % (MANUAL) 40 % (42-75)
== END 2020-07-15 09:50 | disposition home or self-care (01) ==
LOC: DS 05:52
PROVIDERS: ATTEND Ophthalmology
DX: H25.89 Other age-related cataract (principal); Z79.899 Other long term (current) drug therapy; Z98.890 Other specified postprocedural states; Z88.2 Allergy status to sulfonamides; Z88.1 Allergy status to other antibiotic agents; Z82.49 Family history of ischemic heart disease and other diseases of the circulatory system; Z83.3 Family history of diabetes mellitus; Z80.3 Family history of malignant neoplasm of breast
CPT/HCPCS: 36415; 66984; 80053; 85007; 85025; J0171; J3010; J3471; J3490 ×2; J7120; J7321; V2632; 70030-TC; A4663

== ENCOUNTER 2021-07-10 12:26 | Emergency (ER) | payer BC, OTHER ==
[~2021-07-10] VITALS: Ht 162.6 cm; Wt 74.8 kg
[2021-07-10] MEDS ORDERED: PRED50TA PO (12:56)
[2021-07-10] MEDS ORDERED: GUAI5SYR4 PO (12:56)
[2021-07-10] MEDS ORDERED: AZIT500T2 PO (12:56)
[2021-07-10] MEDS ORDERED: AZITHROMYCIN 250 MG TABLET PO ONE (13:00)
[2021-07-10] MEDS ORDERED: predniSONE 50 MG TABLET PO ONE (13:00)
[2021-07-10] MEDS ORDERED: predniSONE 50 MG TABLET ONE (13:12)
[2021-07-10] MEDS ORDERED: AZITHROMYCIN 250 MG TABLET ONE (13:14)
--- NOTE | 2021-07-10 13:14 | NUR ---
Patient discharged to home in stable condition. Written and verbal after care instructions given. Patient verbalizes understanding of instructions. Stressed follow up or return to ER for worsening s/s.
[2021-07-10 13:15] VITALS: BP 139/78
== END 2021-07-10 13:16 | disposition home or self-care (01) ==
LOC: ER 12:27
DX: B34.9 Viral infection, unspecified (principal); Z83.3 Family history of diabetes mellitus; Z82.49 Family history of ischemic heart disease and other diseases of the circulatory system; Z90.49 Acquired absence of other specified parts of digestive tract; Z87.19 Personal history of other diseases of the digestive system
CPT/HCPCS: 99283; J7512; A4663; J7030; Q0144

== ENCOUNTER 2021-12-20 07:43 | Outpatient (CLI) | payer BC, OTHER ==
[~2021-12-20 07:43] MED LIST changes: +AZIT500T2 PO; +GUAI5SYR4 PO; +PRED50TA PO
== END 2021-12-20 23:59 | disposition home or self-care (01) ==
LOC: LAB 07:43
PROVIDERS: ATTEND Podiatrist Foot & Ankle Surgery
DX: Z01.812 Encounter for preprocedural laboratory examination (principal); Z20.822 Contact with and (suspected) exposure to COVID-19

== ENCOUNTER 2021-12-22 19:02 | Inpatient (IN) | payer BC, OTHER ==
[~2021-12-22] VITALS: Ht 162.6 cm; Wt 74.4 kg
--- NOTE | 2021-12-22 16:30 | NUR ---
Report received for incoming med surg admission.
[2021-12-22 17:45] VITALS: BP 146/60
--- NOTE | 2021-12-22 17:45 | NUR ---
Patient admitted to med Surg unit s/p left foot multiple tendon repair. Brought into unit by 2 OR nurses, VS WNL in recovery room, WNL in unit. Patient has left foot swapped and splint in place. Patient is AAO x4, denies any pain or discomfort to left foot. No SOB, 02 sats 94% on RA, denies any chest pain. Patient to progress diet as tolerated. Able to tolerate water, aspiration precautions followed. All needs attended by staff.
[2021-12-22 18:00] VITALS: BP 146/66
[2021-12-22] MEDS ORDERED: ASCO-373 PO (19:36)
[2021-12-22] MEDS ORDERED: PANT40TA2 PO (19:36)
[2021-12-22] MEDS ORDERED: CHOL-35 PO (19:36)
[2021-12-22] MEDS ORDERED: ALEN70TA3 PO (19:36)
[2021-12-22] MEDS ORDERED: HYDR-3980 PO (19:36)
[2021-12-22] MEDS ORDERED: LOSA50TA39 PO (19:36)
[2021-12-22] MEDS ORDERED: HYDROCODONE/APAP 5-325MG TABLET PO PRN ×2 (19:45)
[2021-12-22] MEDS ORDERED: HYDROCODONE/APAP 10-325 MG TABLET PO PRN ×2 (19:45)
[2021-12-22 20:00] VITALS: BP 116/60
--- NOTE | 2021-12-22 21:20 | NUR ---
Assumed care of patient from TAB Perez. Received patient lying in bed. AAOx4. In no acute distress. Denies any SOB. Complain of mild pain and tolerable at this time. Left foot with bandage and splint in place. IV site on right hand intact and patent. Needs assessed and attended to. Safety measure initiated and call light within reached.
[2021-12-22] MEDS: ASCORBIC ACID 500 MG TABLET PO SCH (21:27)
[2021-12-22] MEDS: CEFAZOLIN 1 G in IV DEXTROSE 5% 50 ML IV SCH (21:27)
[2021-12-22] MEDS: HYDROCODONE/APAP 10-325 MG TABLET PO PRN (22:17)
[2021-12-23] MEDS: MORPHINE SULFATE 2 MG/1 ML DISP.SYRIN IV PRN ×2 (01:54→09:16)
[2021-12-23 04:00] VITALS: BP 102/52
--- NOTE | 2021-12-23 05:50 | NUR ---
AAOx4. In no acute distress. Denies any SOB. Lynndyl 10/325mg tab PO given for mod. pain and Morphine 2mg via IV given for complain of severe pain and effective. Left foot with bandage and splint remains in place. IV site on right hand intact and patent. No adverse effect noted from IV antibiotic. Needs attended to and met. Safety measure maintained and call light within reached.
[2021-12-23] MEDS: PANTOPRAZOLE SODIUM 40 MG TABLET.DR PO SCH (06:01)
[2021-12-23] MEDS: CEFAZOLIN 1 G in IV DEXTROSE 5% 50 ML IV SCH (06:02)
[2021-12-23] MEDS ORDERED: ASCORBIC ACID 500 MG TABLET PO SCH (09:00)
[2021-12-23] MEDS: ASCORBIC ACID 500 MG TABLET PO SCH ×2 (09:15→20:58)
[2021-12-23] MEDS: ASPIRIN 81 MG TAB.CHEW PO SCH (09:16)
[2021-12-23] MEDS: ZINC SULFATE 220 MG CAPSULE PO SCH (09:16)
[2021-12-23] MEDS: CHOLECALCIFEROL 1,000 UNIT TABLET PO SCH (09:16)
[2021-12-23 09:20] VITALS: BP 121/53
[2021-12-23] MEDS: LOSARTAN POTASSIUM 50 MG TABLET PO SCH (09:20)
[2021-12-23] MEDS: ACETAMINOPHEN 325 MG TABLET PO PRN ×2 (09:51→20:58)
[2021-12-23 12:11] VITALS: BP 111/52
--- NOTE | 2021-12-23 13:57 | NUR ---
Pt is a/o x 4, complains of pain in the left foot. Pt will be discharged from [facility] and be admitted to [facility].
[2021-12-23] MEDS: HYDROCODONE/APAP 10-325 MG TABLET PO PRN ×2 (15:15→22:37)
[2021-12-23 16:00] VITALS: BP 125/55
--- NOTE | 2021-12-23 19:30 | NUR ---
Patient received lying in bed awake, alert and oriented x 4. No c/o pain at this time. Not in resp distress. Left foot bandage/splint intact, dry and clean.
[2021-12-23 20:24] VITALS: BP 119/49
[2021-12-24 04:26] VITALS: BP 110/48
--- NOTE | 2021-12-24 05:44 | NUR ---
Slept well, no c/o pain/discomfort at this time. No noted respiratory distress. Left foot bandage intact, dry and clean. Needs attended and anticipated.
[2021-12-24] MEDS: PANTOPRAZOLE SODIUM 40 MG TABLET.DR PO SCH (06:03)
[2021-12-24] MEDS: ASPIRIN 81 MG TAB.CHEW PO SCH (10:12)
[2021-12-24] MEDS: LOSARTAN POTASSIUM 50 MG TABLET PO SCH (10:18)
[2021-12-24] MEDS: ASCORBIC ACID 500 MG TABLET PO SCH (10:18)
[2021-12-24] MEDS: ZINC SULFATE 220 MG CAPSULE PO SCH (10:18)
[2021-12-24] MEDS: CHOLECALCIFEROL 1,000 UNIT TABLET PO SCH (10:19)
[2021-12-24] MEDS: HYDROCODONE/APAP 10-325 MG TABLET PO PRN (10:27)
[2021-12-24 11:16] VITALS: BP 131/57
[2021-12-24 15:07] VITALS: BP 119/55
[2021-12-25] MEDS ORDERED: ALENDRONATE SODIUM 70 MG TABLET PO SCH (09:00)
== END 2021-12-24 15:41 | DRG 502 ==
LOC: MEDSURG3 19:02
PROC: 0SGJ04Z Fusion of Left Tarsal Joint with Internal Fixation Device, Open Approach (ICD-10-PCS; principal; 2021-12-22)
PROC: 0LBP0ZZ Excision of Left Lower Leg Tendon, Open Approach (ICD-10-PCS; 2021-12-22)
PROC: 0LBW0ZZ Excision of Left Foot Tendon, Open Approach (ICD-10-PCS; 2021-12-22)
DX: S86.312A Strain of muscle(s) and tendon(s) of peroneal muscle group at lower leg level, left leg, initial encounter (principal); M67.472 Ganglion, left ankle and foot; E03.9 Hypothyroidism, unspecified; H26.9 Unspecified cataract; I10 Essential (primary) hypertension; K21.9 Gastro-esophageal reflux disease without esophagitis; K29.70 Gastritis, unspecified, without bleeding; X58.XXXA Exposure to other specified factors, initial encounter; Y93.9 Activity, unspecified; Y92.89 Other specified places as the place of occurrence of the external cause; M76.72 Peroneal tendinitis, left leg; Y99.9 Unspecified external cause status
CPT/HCPCS: 36415; 70030-TC; 73630; 85025; 85730; 87070; 97161; A4649; A4663; C1713; G0378; J0690; J1100; J1170; J2270; J2405; J3010; J3490; J7120

== ENCOUNTER 2021-12-23 14:57 | Inpatient (IN) | payer BC, OTHER ==
[~2021-12-23] VITALS: Ht 162.6 cm; Wt 74.4 kg
[~2021-12-23 14:57] MED LIST changes: +ALEN70TA3 PO; +ASCO-373 PO; -AZIT500T2 PO; +CHOL-35 PO; -GUAI5SYR4 PO; +HYDR-3980 PO; +LOSA50TA39 PO; +PANT40TA2 PO; -PRED50TA PO
[2021-12-24 17:55] VITALS: BP 119/69
[2021-12-24 20:21] VITALS: BP 129/67
[2021-12-24] MEDS ORDERED: REMEDY ESSENTIAL ZINC PASTE 113 GM TOP PRN (21:30)
--- NOTE | 2021-12-24 22:54 | NUR ---
Received patient in bed awake, alert and oriented x 4. No respiratory distress noted. No c/o pain at this time. Call light within easy reach and instructed. Bed in locked and low position.
[2021-12-24] MEDS: HYDROCODONE/APAP 10-325 MG TABLET PO PRN (23:35)
[2021-12-25 04:46] VITALS: BP 118/49
--- NOTE | 2021-12-25 06:56 | NUR ---
Patient slept well, easy to arouse. No noted acute distress. Medicated for pain with good effect. Left foot with clean and dry bandage. Needs attended and anticipated.
[2021-12-25 07:51] VITALS: BP 118/40
[2021-12-25] MEDS ORDERED: BISACODYL 10 MG SUPP.RECT RC PRN (09:30)
[2021-12-25] MEDS: HYDROCODONE/APAP 10-325 MG TABLET PO PRN ×2 (09:37→21:32)
[2021-12-25 15:14] VITALS: BP 101/44
[2021-12-25] MEDS: ASPIRIN 81 MG TAB.CHEW PO SCH (16:53)
[2021-12-25] MEDS: CHOLECALCIFEROL 1,000 UNIT TABLET PO SCH (16:53)
[2021-12-25] MEDS: ENOXAPARIN SODIUM 40 MG/0.4 ML DISP.SYRIN SQ SCH (16:54)
[2021-12-25 19:47] VITALS: BP 115/58
[2021-12-26 04:15] VITALS: BP 114/60
[2021-12-26] MEDS: PANTOPRAZOLE SODIUM 40 MG TABLET.DR PO SCH (06:07)
[2021-12-26] MEDS: ALENDRONATE SODIUM 70 MG TABLET PO SCH (06:09)
[2021-12-26] MEDS ORDERED: ALENDRONATE SODIUM 70 MG TABLET PO ONE (07:00)
[2021-12-26 08:51] VITALS: BP 117/66
[2021-12-26] MEDS: ASCORBIC ACID 500 MG TABLET PO SCH (10:18)
[2021-12-26] MEDS: ASPIRIN 81 MG TAB.CHEW PO SCH (10:18)
[2021-12-26] MEDS: CHOLECALCIFEROL 1,000 UNIT TABLET PO SCH (10:18)
[2021-12-26] MEDS: LOSARTAN POTASSIUM 50 MG TABLET PO SCH (10:18)
[2021-12-26] MEDS: ENOXAPARIN SODIUM 40 MG/0.4 ML DISP.SYRIN SQ SCH (10:24)
[2021-12-26 16:28] VITALS: BP 126/45
[2021-12-26] MEDS: HYDROCODONE/APAP 10-325 MG TABLET PO PRN (19:58)
[2021-12-26 20:56] VITALS: BP 135/52
--- NOTE | 2021-12-26 21:00 | NUR ---
At [facility] pt was given [place] prn for 8/10 pain scale. Pt tolerated it well. After an hour pt stated the pain subsided.[place] effective. Safety and comfort provided. Will continue to monitor.
[2021-12-27 04:26] VITALS: BP 132/57
[2021-12-27] MEDS: PANTOPRAZOLE SODIUM 40 MG TABLET.DR PO SCH (06:11)
[2021-12-27 08:00] VITALS: BP 115/55
--- NOTE | 2021-12-27 08:00 | NUR ---
AWAKE ALERT AND VERBALLY RESPONSIVE DENIES ACUTE PAIN, LEFT FOOT AND TOES WARM TO TOUCH WITH GOOD CAPILLARY REFILL, GOOD PEDAL PULSE. ELEVATED WITH 2 PILLOWS
[2021-12-27] MEDS: ASPIRIN 81 MG TAB.CHEW PO SCH (08:42)
[2021-12-27] MEDS: CHOLECALCIFEROL 1,000 UNIT TABLET PO SCH (08:43)
[2021-12-27] MEDS: ASCORBIC ACID 500 MG TABLET PO SCH (08:44)
[2021-12-27] MEDS: LOSARTAN POTASSIUM 50 MG TABLET PO SCH (08:56)
[2021-12-27] MEDS: ENOXAPARIN SODIUM 40 MG/0.4 ML DISP.SYRIN SQ SCH (08:58)
[2021-12-27 12:00] VITALS: BP 126/63
--- NOTE | 2021-12-27 12:00 | NUR ---
NO ACUTE CHANGE FROM MORNING ASSESSMENT, TRIED TO OFFER PRN MEDS PATIENT REFUSED
[2021-12-27] MEDS: HYDROCODONE/APAP 10-325 MG TABLET PO PRN ×2 (13:45→20:08)
--- NOTE | 2021-12-27 14:19 | NUR ---
INDIVIDUALIZED PLAN OF CARE
[2021-12-27 15:48] VITALS: BP 107/73
--- NOTE | 2021-12-27 16:34 | NUR ---
PATIENT CONTINUE FAIR TOLERANCE WITH PT/OT NWB LEFT LEG. SEE NOTES
--- NOTE | 2021-12-27 18:00 | NUR ---
C/O TIGHTNESS AND DISCOMFORT LEFT FOOT, GOOD PEDAL PULSE. TOES WARM TO TOUCH, DENIES SOB AND REFUSED PRN PAIN MEDS COOLING MEASURES APPLIED. OBSERVED
[2021-12-27 20:00] VITALS: BP 121/56
--- NOTE | 2021-12-27 20:10 | NUR ---
RECEIVED PATIENT AWAKE IN BED. PATIENT IS A/O X4. C/O DISCOMFORT IN LEFT FOOT. PATIENT GIVEN [place] 1 TAB PO PRN FOR PAIN. LLE ELEVATED ON PILLOWS AND ICED APPLIED. TOES WARM TO TOUCH, SENSATION PRESENT. VS WNL. NO RESP. DISTRESS NOTED. CALL LIGHT IN REACH. ALL NEEDS ATTENDED, WILL CONTINUE TO MONITOR AND ASSESS.
[2021-12-28] MEDS: HYDROCODONE/APAP 10-325 MG TABLET PO PRN ×4 (01:36→20:55)
--- NOTE | 2021-12-28 01:40 | NUR ---
PATIENT AWAKE IN BED. C/O PAIN IN LEFT FOOT. PATIENT GIVEN [place] 1 TAB PO PRN FOR PAIN. PATIENT STATED THAT SHE FEELS LIKE HER CAST IS TIGHTER THAN USUAL. SOME SWELLING NOTED TO TOES AND TOP OF FOOT. ELEVATED ON PILLOWS AND ICED APPLIED. WILL ENDORSE TO AM SHIFT AND NOTIFY MD. NEURO-VASCULAR CHECKS WNL. SENSATION PRESENT. WARM TO TOUCH. CALL LIGHT IN REACH. ALL NEEDS ATTENDED. WILL CONTINUE TO MONITOR AND ASSESS.
[2021-12-28 04:18] VITALS: BP 140/62
[2021-12-28] MEDS: PANTOPRAZOLE SODIUM 40 MG TABLET.DR PO SCH (06:06)
--- NOTE | 2021-12-28 07:13 | NUR ---
PATIENT RESTING IN BED NO SIGNS OF DISTRESS OR ACUTE PAIN. LEFT FOOT ELEVATED WITH PILLOW/ICE PACK FOR PAIN. TOES WARM AND DRY WITH GOOD CAPILLARY REFILL, PALPABLE PULSE. CONTINUE PAIN MANAGEMENT AND THERAPY PLANNED
[2021-12-28 08:00] VITALS: BP 133/64
[2021-12-28] MEDS: LOSARTAN POTASSIUM 50 MG TABLET PO SCH (08:30)
[2021-12-28] MEDS: CHOLECALCIFEROL 1,000 UNIT TABLET PO SCH (08:31)
[2021-12-28] MEDS: ASCORBIC ACID 500 MG TABLET PO SCH (08:31)
[2021-12-28] MEDS: ASPIRIN 81 MG TAB.CHEW PO SCH (08:31)
[2021-12-28] MEDS: ENOXAPARIN SODIUM 40 MG/0.4 ML DISP.SYRIN SQ SCH (08:32)
[2021-12-28 15:07] VITALS: BP 123/54
[2021-12-28 16:00] VITALS: BP 133/64
--- NOTE | 2021-12-28 17:04 | NUR ---
LEFT FOOT ELEVATED AT ALL TIMES, WIGGLE TOES WELL, WITH GOOD CAPILLARY REFILL AND PALPABLE PEDAL PULSE WARM TO TOUCH. CONTINUE WITH PAIN MANAGEMENT
[2021-12-28 20:00] VITALS: BP 114/54
[2021-12-28] MEDS: DOCUSATE SODIUM 100 MG CAPSULE PO SCH (20:55)
[2021-12-28 21:00] VITALS: BP 124/63
[2021-12-29] MEDS: HYDROCODONE/APAP 10-325 MG TABLET PO PRN ×3 (05:37→20:07)
[2021-12-29] MEDS: PANTOPRAZOLE SODIUM 40 MG TABLET.DR PO SCH (05:38)
--- NOTE | 2021-12-29 06:32 | NUR ---
Shift End Report: VS stable. Medicated twice with [place] with relief. No further complaint presented. Left foot elevated with pillow and with continuous ice pack therapy. Able to wiggle toes without difficulty, pulse palpable. Continue current rehab plan of care. Slept good.
[2021-12-29 07:30] VITALS: BP 124/61
[2021-12-29] MEDS: ENOXAPARIN SODIUM 40 MG/0.4 ML DISP.SYRIN SQ SCH (08:14)
[2021-12-29] MEDS: ASPIRIN 81 MG TAB.CHEW PO SCH (08:32)
[2021-12-29] MEDS: ASCORBIC ACID 500 MG TABLET PO SCH (08:32)
[2021-12-29] MEDS: CHOLECALCIFEROL 1,000 UNIT TABLET PO SCH (08:32)
[2021-12-29] MEDS: DOCUSATE SODIUM 100 MG CAPSULE PO SCH ×2 (08:32→20:06)
[2021-12-29] MEDS: LOSARTAN POTASSIUM 50 MG TABLET PO SCH (08:33)
[2021-12-29 15:41] VITALS: BP 111/51
--- NOTE | 2021-12-29 16:34 | NUR ---
INTERDISCIPLINARY TEAM CONFERENCE
--- NOTE | 2021-12-29 17:55 | NUR ---
patient is alert, oriented x4, no distress noted, dressing is intact to left foot, and non weight bearing, patient fully understands of non weight bearing status, left pedal pulse is very strong, capillary refil less than 3 seconds, still noted with some swelling, however much less than before. patient denied any tingling or numbness to left foot or toes.
[2021-12-29 18:19] LABS: HEMATOCRIT 24.3 % (31.2-41.9); MEAN CORPUSCULAR HEMOGLOBIN 16.6 uug (24.7-32.8); MEAN CORPUSCULAR VOLUME 54.1 fL (75.5-95.3); PLATELET COUNT (AUTO) 321 K/uL (179-408)
[2021-12-29 18:41] LABS: CREATININE 0.9 mg/dL (0.6-1.3); POTASSIUM 3.8 mmol/L (3.5-5.1)
--- NOTE | 2021-12-29 19:24 | NUR ---
patient is alert, oriented x4, no distress noted, tolerated PT, OT well, patient denied any dizziness, no distress noted
[2021-12-29 20:52] VITALS: BP 116/47
[2021-12-30 04:26] VITALS: BP 117/48
[2021-12-30] MEDS: PANTOPRAZOLE SODIUM 40 MG TABLET.DR PO SCH (06:25)
[2021-12-30] MEDS: HYDROCODONE/APAP 10-325 MG TABLET PO PRN ×2 (06:30→17:04)
[2021-12-30 07:53] VITALS: BP 122/49
--- NOTE | 2021-12-30 08:00 | NUR ---
AWAKE ALERT AND 0RIENTED X3 DENIES ACUTE PAIN, NO SIGNS OF SOB. LEFT FOOT WARM TO TOUCH WITH GOOD CAPILLARY REFILL AND PALPABLE PULSE. AFEBRILE
[2021-12-30] MEDS: DOCUSATE SODIUM 100 MG CAPSULE PO SCH ×2 (08:50→20:53)
[2021-12-30] MEDS: ASPIRIN 81 MG TAB.CHEW PO SCH (08:50)
[2021-12-30] MEDS: ASCORBIC ACID 500 MG TABLET PO SCH (08:51)
[2021-12-30] MEDS: CHOLECALCIFEROL 1,000 UNIT TABLET PO SCH (08:51)
[2021-12-30] MEDS: LOSARTAN POTASSIUM 50 MG TABLET PO SCH (08:51)
[2021-12-30] MEDS: ENOXAPARIN SODIUM 40 MG/0.4 ML DISP.SYRIN SQ SCH (09:06)
--- NOTE | 2021-12-30 12:00 | NUR ---
PATIENT REMAINS WITH PT,OT TOLERATING WELL
[2021-12-30] MEDS: FERROUS SULFATE 325 MG TABEC PO SCH ×2 (12:08→20:53)
[2021-12-30 12:36] LABS: IRON, SERUM 37 ug/dL (50-175)
[2021-12-30 12:49] LABS: FERRITIN 854 ng/mL (8-252)
[2021-12-30 15:40] VITALS: BP 107/51
--- NOTE | 2021-12-30 18:11 | NUR ---
CONTINUE WITH PAIN MANAGEMENT WITH GOOD RELIEF, ICE COMPRESSED LEFT FOOT ON AND OFF
[2021-12-30 21:04] VITALS: BP 115/59
[2021-12-31 04:38] VITALS: BP 131/53
[2021-12-31] MEDS: HYDROCODONE/APAP 10-325 MG TABLET PO PRN ×2 (05:58→20:20)
[2021-12-31] MEDS: PANTOPRAZOLE SODIUM 40 MG TABLET.DR PO SCH (06:00)
[2021-12-31] MEDS: DOCUSATE SODIUM 100 MG CAPSULE PO SCH ×2 (08:29→20:15)
[2021-12-31] MEDS: FERROUS SULFATE 325 MG TABEC PO SCH ×2 (08:29→20:15)
[2021-12-31] MEDS: ASCORBIC ACID 500 MG TABLET PO SCH (08:29)
[2021-12-31] MEDS: ASPIRIN 81 MG TAB.CHEW PO SCH (08:29)
[2021-12-31] MEDS: CHOLECALCIFEROL 1,000 UNIT TABLET PO SCH (08:29)
[2021-12-31] MEDS: LOSARTAN POTASSIUM 50 MG TABLET PO SCH (08:31)
[2021-12-31] MEDS: ENOXAPARIN SODIUM 40 MG/0.4 ML DISP.SYRIN SQ SCH (08:37)
[2021-12-31 08:50] VITALS: BP 136/56
[2021-12-31 15:39] VITALS: BP 127/43
--- NOTE | 2021-12-31 17:19 | NUR ---
Per Rhys Quiroz. Pt is to see DR Muro for post op follow up on 01/05/22 @1pm. Pt is to be picked up by [facility] @12pm. Clinic address is [address] [place], [place] [id number] #[phone] information given to patient as well. Pt states Ice is helping decrease swelling on her foot.
[2021-12-31 21:01] VITALS: BP 146/56
[2022-01-01 04:40] VITALS: BP 146/65
[2022-01-01] MEDS: PANTOPRAZOLE SODIUM 40 MG TABLET.DR PO SCH (06:03)
[2022-01-01] MEDS: ALENDRONATE SODIUM 70 MG TABLET PO SCH (06:03)
--- NOTE | 2022-01-01 06:35 | NUR ---
Pt slept intermittently throughout the night, easily arousable for care. No significant changes noted. All needs attended. Will endorse to next shift for continuity of care.
[2022-01-01 07:32] VITALS: BP 129/54
[2022-01-01] MEDS: CHOLECALCIFEROL 1,000 UNIT TABLET PO SCH (09:08)
[2022-01-01] MEDS: ASPIRIN 81 MG TAB.CHEW PO SCH (09:08)
[2022-01-01] MEDS: ASCORBIC ACID 500 MG TABLET PO SCH (09:09)
[2022-01-01] MEDS: ENOXAPARIN SODIUM 40 MG/0.4 ML DISP.SYRIN SQ SCH (09:09)
[2022-01-01] MEDS: FERROUS SULFATE 325 MG TABEC PO SCH ×2 (09:09→20:57)
[2022-01-01] MEDS: DOCUSATE SODIUM 100 MG CAPSULE PO SCH ×2 (09:09→20:57)
[2022-01-01] MEDS: LOSARTAN POTASSIUM 50 MG TABLET PO SCH (09:09)
[2022-01-01 12:11] LABS: HEMATOCRIT 24.9 % (31.2-41.9); MEAN CORPUSCULAR HEMOGLOBIN 16.6 uug (24.7-32.8); MEAN CORPUSCULAR VOLUME 53.9 fL (75.5-95.3); PLATELET COUNT (AUTO) 492 K/uL (179-408)
[2022-01-01 12:21] LABS: BILIRUBIN,TOTAL 0.6 mg/dL (0.2-1.0); CREATININE 0.8 mg/dL (0.6-1.3); POTASSIUM 4.3 mmol/L (3.5-5.1); TOTAL PROTEIN, SERUM 7.1 g/dL (6.4-8.2)
[2022-01-01 13:01] LABS: LYMPHOCYTES % (MANUAL) 35 % (20-40); MONOCYTES % (MANUAL) 8 % (2-10); NEUTROPHILS % (MANUAL) 57 % (42-75)
[2022-01-01] MEDS: HYDROCODONE/APAP 10-325 MG TABLET PO PRN (13:15)
[2022-01-01 13:32] LABS: *BILIRUBIN,URIN NEGATIVE (NEGATIVE); *BLOOD, URINE NEGATIVE (NEGATIVE); *CLARITY,URINE CLEAR (CLEAR); *COLOR,URINE YELLOW (YELLOW); *KETONES,URINE NEGATIVE (NEGATIVE); *UROBILINOGEN,URINE 0.2 E.U./dl (NORMAL); LEUKOCYTE ESTERASE ,URINE TRACE (NEGATIVE); NITRITE, URINE NEGATIVE (NEGATIVE); UGLUCOSE NEGATIVE (NEGATIVE)
[2022-01-01 13:41] LABS: BACTERIA,URINE FEW /HPF (NONE SEEN); RBC,URINE 0-3 /HPF (0-3); SQUAMOUS EPITHELIAL CELL,UR FEW /HPF (NONE SEEN)
[2022-01-01 16:00] VITALS: BP 109/52
--- NOTE | 2022-01-01 19:16 | NUR ---
no concerns noted. no distress identified. will continue plan of care.
[2022-01-01 20:00] VITALS: BP 124/48
[2022-01-02] MEDS: HYDROCODONE/APAP 10-325 MG TABLET PO PRN ×3 (03:12→20:53)
[2022-01-02 04:00] VITALS: BP 119/58
[2022-01-02] MEDS: PANTOPRAZOLE SODIUM 40 MG TABLET.DR PO SCH (06:14)
--- NOTE | 2022-01-02 06:48 | NUR ---
remained stable during the shift. requested x1 prn pain med. no other concerns identified. will endorse.
[2022-01-02 08:00] VITALS: BP 117/62
[2022-01-02] MEDS: ASPIRIN 81 MG TAB.CHEW PO SCH (08:25)
[2022-01-02] MEDS: DOCUSATE SODIUM 100 MG CAPSULE PO SCH ×2 (08:26→20:53)
[2022-01-02] MEDS: FERROUS SULFATE 325 MG TABEC PO SCH ×2 (08:26→20:53)
[2022-01-02] MEDS: CHOLECALCIFEROL 1,000 UNIT TABLET PO SCH (08:26)
[2022-01-02] MEDS: ASCORBIC ACID 500 MG TABLET PO SCH (08:26)
[2022-01-02] MEDS: LOSARTAN POTASSIUM 50 MG TABLET PO SCH (08:28)
[2022-01-02] MEDS: ENOXAPARIN SODIUM 40 MG/0.4 ML DISP.SYRIN SQ SCH (08:29)
[2022-01-02] MEDS: CEphaleXIN 500 MG CAPSULE PO SCH ×3 (11:24→16:57)
[2022-01-02 16:44] VITALS: BP 106/70
[2022-01-02 20:16] VITALS: BP 124/55
[2022-01-03 04:00] VITALS: BP 108/54
[2022-01-03] MEDS: PANTOPRAZOLE SODIUM 40 MG TABLET.DR PO SCH (06:18)
--- NOTE | 2022-01-03 06:47 | NUR ---
Medicated once for pain with relief. No further complaint presented. Self help.
[2022-01-03 07:24] VITALS: BP 121/67
[2022-01-03] MEDS: CHOLECALCIFEROL 1,000 UNIT TABLET PO SCH (08:52)
[2022-01-03] MEDS: FERROUS SULFATE 325 MG TABEC PO SCH ×2 (08:52→21:11)
[2022-01-03] MEDS: DOCUSATE SODIUM 100 MG CAPSULE PO SCH ×2 (08:52→21:11)
[2022-01-03] MEDS: ASPIRIN 81 MG TAB.CHEW PO SCH (08:52)
[2022-01-03] MEDS: CEphaleXIN 500 MG CAPSULE PO SCH ×3 (08:56→17:26)
[2022-01-03] MEDS: ASCORBIC ACID 500 MG TABLET PO SCH (08:56)
[2022-01-03] MEDS: LOSARTAN POTASSIUM 50 MG TABLET PO SCH (08:56)
[2022-01-03] MEDS: ENOXAPARIN SODIUM 40 MG/0.4 ML DISP.SYRIN SQ SCH (08:57)
[2022-01-03] MEDS: HYDROCODONE/APAP 10-325 MG TABLET PO PRN ×2 (09:07→21:11)
[2022-01-03 12:13] VITALS: BP 105/61
[2022-01-03 16:50] VITALS: BP 108/60
--- NOTE | 2022-01-03 18:52 | NUR ---
patient is alert, oriented x4, no distress noted, dressing is intact to left foot, and non weight bearing, patient fully understands of non weight bearing status, left pedal pulse is very strong, capillary refil less than 3 seconds, patient denied any tingling or numbness to left foot or toes
[2022-01-03 20:27] VITALS: BP 133/58
[2022-01-04 04:00] VITALS: BP 116/51
[2022-01-04] MEDS: PANTOPRAZOLE SODIUM 40 MG TABLET.DR PO SCH (06:19)
[2022-01-04] MEDS: HYDROCODONE/APAP 10-325 MG TABLET PO PRN ×2 (07:59→20:48)
[2022-01-04 08:00] VITALS: BP 111/59
[2022-01-04] MEDS: CHOLECALCIFEROL 1,000 UNIT TABLET PO SCH (08:40)
[2022-01-04] MEDS: ASPIRIN 81 MG TAB.CHEW PO SCH (08:40)
[2022-01-04] MEDS: DOCUSATE SODIUM 100 MG CAPSULE PO SCH ×2 (08:40→20:46)
[2022-01-04] MEDS: LOSARTAN POTASSIUM 50 MG TABLET PO SCH (08:41)
[2022-01-04] MEDS: FERROUS SULFATE 325 MG TABEC PO SCH ×2 (08:41→20:46)
[2022-01-04] MEDS: ASCORBIC ACID 500 MG TABLET PO SCH (08:41)
[2022-01-04] MEDS: CEphaleXIN 500 MG CAPSULE PO SCH ×3 (08:42→16:03)
[2022-01-04] MEDS: ENOXAPARIN SODIUM 40 MG/0.4 ML DISP.SYRIN SQ SCH (08:48)
[2022-01-04 16:00] VITALS: BP 100/53
--- NOTE | 2022-01-04 18:32 | NUR ---
[id number] is aware about having follow up tomorrows with orthopedic, patient is alert, oriented x4, no distress noted, dressing is intact to left foot, and non weight bearing, patient fully understands of non weight bearing status, left pedal pulse is very strong, capillary refil less than 3 seconds, patient denied any tingling or numbness to left foot or toes.
[2022-01-04 20:00] VITALS: BP 105/46
[2022-01-05 04:00] VITALS: BP 118/55
[2022-01-05] MEDS: PANTOPRAZOLE SODIUM 40 MG TABLET.DR PO SCH (06:24)
--- NOTE | 2022-01-05 06:51 | NUR ---
Slept well within the shift, received [place] one within the shift, for doctors appointment today. For continuity of care.
[2022-01-05 08:00] VITALS: BP 110/55
[2022-01-05] MEDS: FERROUS SULFATE 325 MG TABEC PO SCH ×2 (08:51→21:41)
[2022-01-05] MEDS: ENOXAPARIN SODIUM 40 MG/0.4 ML DISP.SYRIN SQ SCH (08:51)
[2022-01-05] MEDS: ASPIRIN 81 MG TAB.CHEW PO SCH (08:51)
[2022-01-05] MEDS: CEphaleXIN 500 MG CAPSULE PO SCH ×5 (08:51→21:42)
[2022-01-05] MEDS: DOCUSATE SODIUM 100 MG CAPSULE PO SCH ×2 (08:51→21:40)
[2022-01-05] MEDS: ASCORBIC ACID 500 MG TABLET PO SCH (08:51)
[2022-01-05] MEDS: CHOLECALCIFEROL 1,000 UNIT TABLET PO SCH (08:52)
[2022-01-05] MEDS: LOSARTAN POTASSIUM 50 MG TABLET PO SCH (08:53)
[2022-01-05] MEDS: HYDROCODONE/APAP 10-325 MG TABLET PO PRN ×3 (09:07→21:40)
--- NOTE | 2022-01-05 09:07 | NUR ---
medicated for c/o of pain right foot/ankle (surgical site) with [place] as ordered prn
--- NOTE | 2022-01-05 11:50 | NUR ---
ambulance here-pt is going to Dr Muro's office for check up =, in stable condition
--- NOTE | 2022-01-05 14:48 | NUR ---
back from MD check up per ambulance
--- NOTE | 2022-01-05 15:02 | NUR ---
keflex that was due at 1300-given at this time, c/o pain on surgical site-medicated with [place] as ordered prn
--- NOTE | 2022-01-05 15:30 | NUR ---
left foot elevated on pillows, ice applied \sor 10 minutes as ordered, pt instructed still on nwb on left foot, instructed on follow up in 3 weeks, and an xray left foot in 3-4 weeks
[2022-01-05 16:00] VITALS: BP 136/51
--- NOTE | 2022-01-05 18:17 | NUR ---
pt states will take Keflex between 8-9pm since she took ti almost 1500- will endorse to security shift manager, no distress noted, all needs attended and met, call ligth within reach
[2022-01-05 20:00] VITALS: BP 119/52
--- NOTE | 2022-01-05 21:45 | NUR ---
received patient in her room in bed. she is noted A/O x 4. she is in no distress. left foot remains elevated. patient was given Keflex for earlier missed dose. She c/o left foot pain 8/10 in the pain scale. [place] was given. safety and fall precautions are in place. call light within reach. will continue to monitor.
[2022-01-06 04:00] VITALS: BP 117/52
[2022-01-06] MEDS: PANTOPRAZOLE SODIUM 40 MG TABLET.DR PO SCH (06:29)
[2022-01-06 08:20] VITALS: BP 128/53
[2022-01-06] MEDS: CEphaleXIN 500 MG CAPSULE PO SCH ×3 (09:19→16:26)
[2022-01-06] MEDS: FERROUS SULFATE 325 MG TABEC PO SCH ×2 (09:19→20:35)
[2022-01-06] MEDS: DOCUSATE SODIUM 100 MG CAPSULE PO SCH ×2 (09:19→20:35)
[2022-01-06] MEDS: ASPIRIN 81 MG TAB.CHEW PO SCH (09:19)
[2022-01-06] MEDS: ASCORBIC ACID 500 MG TABLET PO SCH (09:19)
[2022-01-06] MEDS: CHOLECALCIFEROL 1,000 UNIT TABLET PO SCH (09:19)
[2022-01-06] MEDS: LOSARTAN POTASSIUM 50 MG TABLET PO SCH (09:19)
[2022-01-06] MEDS: HYDROCODONE/APAP 10-325 MG TABLET PO PRN ×2 (09:20→20:35)
[2022-01-06] MEDS: ENOXAPARIN SODIUM 40 MG/0.4 ML DISP.SYRIN SQ SCH (09:28)
--- NOTE | 2022-01-06 14:38 | NUR ---
Received patient in her room resting in bed. she is AA/O x 4. Left foot remains elevated with cast in place intact good circulation toes warm to touch . patient remain on ATB therapy PO with Keflex 500 mg. She c/o left foot pain medicated with [place] as order prior to PT/OT . safety and fall precautions are in place. call light within reach. will continue to monitor for comfort and safety.
[2022-01-06 16:00] VITALS: BP 109/54
[2022-01-06 20:00] VITALS: BP 138/51
--- NOTE | 2022-01-07 00:27 | NUR ---
AAox4 OOB to the BR with walker. NWB to LLE [id number]. Patient for discharge in am. LLE with short leg cast, (+) pulses noted. Medicated with 1 tab of [place] as needed. Slight relief noted. LLE elevated up on a pillow. No acute distress noted. VSS.
[2022-01-07 04:00] VITALS: BP 122/67
[2022-01-07] MEDS: PANTOPRAZOLE SODIUM 40 MG TABLET.DR PO SCH (06:22)
[2022-01-07 08:02] VITALS: BP 119/67
[2022-01-07] MEDS: DOCUSATE SODIUM 100 MG CAPSULE PO SCH (08:09)
[2022-01-07] MEDS: ASPIRIN 81 MG TAB.CHEW PO SCH (08:09)
[2022-01-07 08:10] VITALS: BP 119/67
[2022-01-07] MEDS: ASCORBIC ACID 500 MG TABLET PO SCH (08:10)
[2022-01-07] MEDS: LOSARTAN POTASSIUM 50 MG TABLET PO SCH (08:10)
[2022-01-07] MEDS: FERROUS SULFATE 325 MG TABEC PO SCH (08:10)
[2022-01-07] MEDS: CHOLECALCIFEROL 1,000 UNIT TABLET PO SCH (08:10)
[2022-01-07] MEDS: CEphaleXIN 500 MG CAPSULE PO SCH ×3 (08:10→17:07)
[2022-01-07] MEDS: HYDROCODONE/APAP 10-325 MG TABLET PO PRN ×2 (08:11→17:08)
[2022-01-07] MEDS: ENOXAPARIN SODIUM 40 MG/0.4 ML DISP.SYRIN SQ SCH (08:15)
--- NOTE | 2022-01-07 20:15 | NUR ---
Pt discharged in stable condition accompanied by 2 food and beverage assistant manager via [facility]. She is alert and oriented able to make needs known. Belongings and discharge packet sent with patient. W/C, bedside commode, and walker also sent with pt. All needs attended.
== END 2022-01-07 20:15 | disposition home health service (06) | DRG 949 ==
PROVIDERS: ADMIT Physical Medicine & Rehabilitation Pain Medicine; ATTEND Physical Medicine & Rehabilitation Pain Medicine
DX: S86.312D Strain of muscle(s) and tendon(s) of peroneal muscle group at lower leg level, left leg, subsequent encounter (principal); N39.0 Urinary tract infection, site not specified; X58.XXXD Exposure to other specified factors, subsequent encounter; M67.874 Other specified disorders of tendon, left ankle and foot; M67.472 Ganglion, left ankle and foot; E03.9 Hypothyroidism, unspecified; I10 Essential (primary) hypertension; K21.9 Gastro-esophageal reflux disease without esophagitis; K29.70 Gastritis, unspecified, without bleeding; Z88.1 Allergy status to other antibiotic agents; Z88.2 Allergy status to sulfonamides
CPT/HCPCS: 36415; 70030-TC; 83550; 85025; 97161; 97535-GO-CO; J1650; J8499

== ENCOUNTER 2023-04-03 07:30 | Inpatient (IN) | payer BC, OTHER ==
[~2023-04-03] VITALS: Ht 162.6 cm; Wt 68.0 kg
[2023-04-03 08:20] LABS: BASOPHILS % (AUTO) 1.1 % (0.0-2.0); EOSINOPHILS # (AUTO) 0.1 K/uL (0.0-0.7); EOSINOPHILS % (AUTO) 1.6 % (0.0-7.0); HEMATOCRIT 27.9 % (31.2-41.9); HEMOGLOBIN 8.7 g/dL (10.9-14.3); LYMPHOCYTES # (AUTO) 2.2 K/uL (0.8-4.8); MEAN CORPUSCULAR HEMOGLOBIN 17.2 uug (24.7-32.8); MEAN CORPUSCULAR HGB CONC 31 g/dL (32.3-35.6); MEAN CORPUSCULAR VOLUME 55.4 fL (75.5-95.3); MONOCYTES # (AUTO) 0.2 K/uL (0.1-1.30); MONOCYTES % (AUTO) 4.6 % (0.0-11.0); NEUTROPHILS # (AUTO) 2.1 K/uL (1.8-8.9); NEUTROPHILS % (AUTO) 44.7 % (38.5-71.5); PLATELET COUNT (AUTO) 231 K/uL (179-408); RED BLOOD CELL COUNT(AUTO) 5.05 MIL/uL (3.63-4.92); RED CELL DISTRIBUTION WIDTH 20.2 % (12.3-17.7); WHITE BLOOD COUNT (AUTO) 4.7 K/uL (3.8-11.8)
[2023-04-03 08:36] LABS: CALCIUM 9.9 mg/dL (8.5-10.1); CARBON DIOXIDE 30 mmol/L (21-32); CHLORIDE 106 mmol/L (98-107); CREATININE 0.8 mg/dL (0.6-1.3); GLUCOSE 150 mg/dL (74-106); POTASSIUM 4.1 mmol/L (3.5-5.1); SODIUM SERUM 139 mmol/L (136-145); UREA NITROGEN, BLOOD 17 mg/dL (7-18)
[2023-04-03 08:40] LABS: DIFFERENTIAL COMMENT 1
[2023-04-03] MEDS ORDERED: MECLIZINE HCL 25 MG TABLET PO ONE (09:15)
[2023-04-03] MEDS ORDERED: METOPROLOL TARTRATE 50 MG TABLET PO ONE (09:15)
[2023-04-03] MEDS ORDERED: ASPIRIN 325 MG TABLET PO ONE (09:15)
[2023-04-03] MEDS ORDERED: MECLIZINE HCL 25 MG TABLET ONE (09:23)
[2023-04-03] MEDS ORDERED: METOPROLOL TARTRATE 50 MG TABLET ONE (09:23)
[2023-04-03] MEDS ORDERED: ASPIRIN 325 MG TABLET ONE (09:24)
[2023-04-03 14:11] VITALS: BP 156/79; TEMP 98.4; O2SAT 99
[2023-04-03] MEDS ORDERED: ENALAPRILAT DIHYDRATE 1.25 MG/1 ML VIAL IV PRN (16:00)
[2023-04-03] MEDS ORDERED: MAGNESIUM HYDROXIDE 30 ML LIQUID UDC PO PRN (17:45)
[2023-04-03] MEDS ORDERED: ACETAMINOPHEN 325 MG TABLET PO PRN (17:45)
[2023-04-03] MEDS ORDERED: TEMAZEPAM 15 MG CAPSULE PO PRN (17:45)
[2023-04-03] MEDS ORDERED: ONDANSETRON 4 MG/2 ML VIAL IV PRN (17:45)
[2023-04-03 20:00] VITALS: BP 120/55; TEMP 98; O2SAT 96
[2023-04-04 04:00] VITALS: BP 128/61; TEMP 97.8; O2SAT 95
[2023-04-04] MEDS: HYDROCODONE/APAP 10-325 MG TABLET PO PRN (04:28)
[2023-04-04] MEDS: PANTOPRAZOLE SODIUM 40 MG TABLET.DR PO SCH (06:05)
[2023-04-04] MEDS ORDERED: ALENDRONATE SODIUM 70 MG TABLET PO SCH (07:00)
[2023-04-04 07:15] LABS: BASOPHILS # (AUTO) 0.1 K/UL (0.0-0.2); BASOPHILS % (AUTO) 1.2 % (0.0-2.0); EOSINOPHILS # (AUTO) 0.1 K/uL (0.0-0.7); HEMATOCRIT 28.8 % (31.2-41.9); HEMOGLOBIN 8.5 g/dL (10.9-14.3); LYMPHOCYTES # (AUTO) 1.9 K/uL (0.8-4.8); LYMPHOCYTES % (AUTO) 38.4 % (20.5-51.5); MEAN CORPUSCULAR HEMOGLOBIN 16.4 uug (24.7-32.8); MEAN CORPUSCULAR HGB CONC 30 g/dL (32.3-35.6); MEAN CORPUSCULAR VOLUME 55.5 fL (75.5-95.3); MONOCYTES # (AUTO) 0.3 K/uL (0.1-1.30); MONOCYTES % (AUTO) 5.6 % (0.0-11.0); NEUTROPHILS # (AUTO) 2.5 K/uL (1.8-8.9); NEUTROPHILS % (AUTO) 52.8 % (38.5-71.5); PLATELET COUNT (AUTO) 232 K/uL (179-408); RED BLOOD CELL COUNT(AUTO) 5.18 MIL/uL (3.63-4.92); RED CELL DISTRIBUTION WIDTH 19.9 % (12.3-17.7); WHITE BLOOD COUNT (AUTO) 4.8 K/uL (3.8-11.8)
[2023-04-04 07:20] LABS: DIFFERENTIAL COMMENT 1
[2023-04-04 07:39] LABS: ALBUMIN 3.6 g/dL (3.4-5.0); BILIRUBIN,TOTAL 0.6 mg/dL (0.2-1.0); CALCIUM 9.6 mg/dL (8.5-10.1); CREATININE 0.8 mg/dL (0.6-1.3); PHOSPHOROUS 3.2 mg/dL (2.5-4.9); POTASSIUM 4.1 mmol/L (3.5-5.1); TOTAL PROTEIN, SERUM 6.5 g/dL (6.4-8.2)
[2023-04-04] MEDS: ASCORBIC ACID 500 MG TABLET PO SCH (08:28)
[2023-04-04] MEDS: LOSARTAN POTASSIUM 50 MG TABLET PO SCH (08:29)
[2023-04-04] MEDS: ASPIRIN 81 MG TAB.CHEW PO SCH (08:29)
[2023-04-04] MEDS: CHOLECALCIFEROL 1,000 UNIT TABLET PO SCH (08:29)
[2023-04-04] MEDS ORDERED: ASCORBIC ACID 250 MG PO SCH (09:00)
[2023-04-04 09:06] LABS: THYROID STIMULATING HORMONE 2.231 mIU/mL (0.358-3.740)
[2023-04-04] MEDS: MECLIZINE HCL 25 MG TABLET PO PRN ×2 (09:34→17:39)
[2023-04-04 11:24] VITALS: BP 132/59; TEMP 97.8; O2SAT 97
[2023-04-04 15:15] VITALS: BP 111/42; TEMP 98.2; O2SAT 96
[2023-04-04 20:15] VITALS: BP 126/52; TEMP 97.9; O2SAT 96
[2023-04-05 00:10] VITALS: BP 118/54; TEMP 98; O2SAT 98
[2023-04-05 04:05] VITALS: BP 140/59; TEMP 98; O2SAT 95
[2023-04-05] MEDS: MECLIZINE HCL 25 MG TABLET PO PRN (04:36)
[2023-04-05] MEDS: HYDROCODONE/APAP 10-325 MG TABLET PO PRN (04:36)
[2023-04-05] MEDS: PANTOPRAZOLE SODIUM 40 MG TABLET.DR PO SCH (06:10)
[2023-04-05 08:00] VITALS: BP 138/61; TEMP 98; O2SAT 95
[2023-04-05] MEDS: ASPIRIN 81 MG TAB.CHEW PO SCH (08:32)
[2023-04-05] MEDS: ASCORBIC ACID 500 MG TABLET PO SCH (08:32)
[2023-04-05] MEDS: LOSARTAN POTASSIUM 50 MG TABLET PO SCH (08:32)
[2023-04-05] MEDS: CHOLECALCIFEROL 1,000 UNIT TABLET PO SCH (08:32)
[2023-04-05] MEDS ORDERED: MECL-159 PO (09:34)
[2023-04-05 11:34] VITALS: BP 120/59; TEMP 98; O2SAT 95
== END 2023-04-05 12:45 | disposition home or self-care (01) | DRG 282 ==
LOC: ER 07:30 → TELE3 13:33 → MEDSURG3 04-05 11:00
PROVIDERS: ADMIT Internal Medicine; ATTEND Internal Medicine
DX: I16.0 Hypertensive urgency (principal); I21.A1 Myocardial infarction type 2; R42 Dizziness and giddiness; D50.9 Iron deficiency anemia, unspecified; E03.9 Hypothyroidism, unspecified; Z88.2 Allergy status to sulfonamides; Z90.49 Acquired absence of other specified parts of digestive tract; K21.9 Gastro-esophageal reflux disease without esophagitis; R51.9 Headache, unspecified; Z20.822 Contact with and (suspected) exposure to COVID-19
CPT/HCPCS: 36415; 70450; 71045; 82378; 83550; 83735; 84100; 84443; 84484; 85025; 93005; 93307; G0378; J8499; J8597

== ENCOUNTER 2023-05-15 08:26 | Inpatient (IN) | payer BC, OTHER ==
[~2023-05-15] VITALS: Ht 162.6 cm; Wt 68.0 kg
[~2023-05-15 08:26] MED LIST changes: +MECL-159 PO
[2023-05-15] MEDS ORDERED: IV NORMAL SALINE 1000 ML BAG IV ONE (08:45)
[2023-05-15] MEDS ORDERED: ONDANSETRON 4 MG/2 ML VIAL IV ONE (08:45)
[2023-05-15] MEDS ORDERED: MECLIZINE HCL 25 MG TABLET PO ONE (09:00)
[2023-05-15 09:17] LABS: BASOPHILS % (AUTO) 0.4 % (0.0-2.0); EOSINOPHILS % (AUTO) 0.3 % (0.0-7.0); HEMATOCRIT 34.4 % (31.2-41.9); HEMOGLOBIN 10.2 g/dL (10.9-14.3); LYMPHOCYTES # (AUTO) 1.1 K/uL (0.8-4.8); LYMPHOCYTES % (AUTO) 18.8 % (20.5-51.5); MEAN CORPUSCULAR HEMOGLOBIN 16.4 uug (24.7-32.8); MEAN CORPUSCULAR HGB CONC 30 g/dL (32.3-35.6); MEAN CORPUSCULAR VOLUME 55.4 fL (75.5-95.3); MONOCYTES # (AUTO) 0.5 K/uL (0.1-1.30); MONOCYTES % (AUTO) 8.6 % (0.0-11.0); NEUTROPHILS # (AUTO) 4.1 K/uL (1.8-8.9); NEUTROPHILS % (AUTO) 71.9 % (38.5-71.5); PLATELET COUNT (AUTO) 228 K/uL (179-408); RED BLOOD CELL COUNT(AUTO) 6.21 MIL/uL (3.63-4.92); RED CELL DISTRIBUTION WIDTH 20.8 % (12.3-17.7); WHITE BLOOD COUNT (AUTO) 5.7 K/uL (3.8-11.8)
[2023-05-15] MEDS ORDERED: MECLIZINE HCL 25 MG TABLET ONE (09:19)
[2023-05-15] MEDS ORDERED: ONDANSETRON 4 MG/2 ML VIAL ONE (09:19)
[2023-05-15 09:29] LABS: CALCIUM 9.6 mg/dL (8.5-10.1); CREATININE 1.2 mg/dL (0.6-1.3); POTASSIUM 3.5 mmol/L (3.5-5.1)
[2023-05-15 09:34] LABS: ALBUMIN 4.2 g/dL (3.4-5.0); BILIRUBIN,DIRECT 0.2 mg/dL (0.0-0.2); BILIRUBIN,TOTAL 0.9 mg/dL (0.2-1.0); DIFFERENTIAL COMMENT 1; TOTAL PROTEIN, SERUM 7.5 g/dL (6.4-8.2)
[2023-05-15 10:09] LABS: *CLARITY,URINE CLEAR (CLEAR); *COLOR,URINE YELLOW (YELLOW); *KETONES,URINE 1+ (NEGATIVE); *PROTEIN,URINE 2+ (NEGATIVE); *UROBILINOGEN,URINE 0.2 E.U./dl (NORMAL); LEUKOCYTE ESTERASE ,URINE NEGATIVE (NEGATIVE); NITRITE, URINE NEGATIVE (NEGATIVE); UGLUCOSE NEGATIVE (NEGATIVE)
[2023-05-15 10:11] LABS: *BILIRUBIN,URIN 1+ (NEGATIVE); *BLOOD, URINE TRACE (NEGATIVE)
[2023-05-15] MEDS ORDERED: ASPIRIN 81 MG TAB.CHEW ONE (11:12)
[2023-05-15] MEDS ORDERED: ASPIRIN 81 MG TAB.CHEW PO ONE (11:15)
[2023-05-15 11:21] LABS: RBC,URINE 0-3 /HPF (0-3)
[2023-05-15 11:22] LABS: BACTERIA,URINE MODERATE /HPF (NONE SEEN); SQUAMOUS EPITHELIAL CELL,UR MODERATE /HPF (NONE SEEN)
[2023-05-15 11:24] LABS: COARSE GRANULAR CASTS,URINE 0-3 /LPF
[2023-05-15] MEDS ORDERED: IOHEXOL 350 100 ML INFUS..BTL ONE (12:02)
[2023-05-15] MEDS ORDERED: SWABABLE VALVE TRANSFER SET EA MC ONE (12:02)
[2023-05-15] MEDS ORDERED: IV NORMAL SALINE 250 ML IV ONE (12:02)
[2023-05-15 14:37] VITALS: BP 117/62; TEMP 98.7; O2SAT 98
[2023-05-15 16:18] VITALS: BP 121/59; TEMP 98.5; O2SAT 94
[2023-05-15] MEDS ORDERED: HYDROCODONE/APAP 10-325 MG TABLET PO PRN (16:45)
[2023-05-15] MEDS ORDERED: MAGNESIUM HYDROXIDE 30 ML LIQUID UDC PO PRN (17:00)
[2023-05-15] MEDS ORDERED: ONDANSETRON 4 MG/2 ML VIAL IV PRN (17:00)
[2023-05-15] MEDS ORDERED: ACETAMINOPHEN 325 MG TABLET PO PRN (17:00)
[2023-05-15 19:53] VITALS: BP 117/65; TEMP 98.7; O2SAT 93
[2023-05-15] MEDS: IV NS 1000 ML 1,000 ML IV PRN (20:52)
[2023-05-16] VITALS: BP 116/65; TEMP 98.5; O2SAT 94
[2023-05-16 06:00] VITALS: BP 115/63; TEMP 98.2; O2SAT 96
[2023-05-16] MEDS ORDERED: ALENDRONATE SODIUM 70 MG TABLET PO SCH (06:00)
[2023-05-16] MEDS: PANTOPRAZOLE SODIUM 40 MG TABLET.DR PO SCH (06:06)
[2023-05-16] MEDS ORDERED: PANTOPRAZOLE SODIUM 40 MG TABLET.DR PO SCH (07:00)
[2023-05-16 07:03] LABS: BASOPHILS % (AUTO) 0.5 % (0.0-2.0); EOSINOPHILS # (AUTO) 0.1 K/uL (0.0-0.7); EOSINOPHILS % (AUTO) 1.4 % (0.0-7.0); HEMATOCRIT 27.4 % (31.2-41.9); HEMOGLOBIN 8.4 g/dL (10.9-14.3); LYMPHOCYTES # (AUTO) 1.7 K/uL (0.8-4.8); LYMPHOCYTES % (AUTO) 41.3 % (20.5-51.5); MEAN CORPUSCULAR HEMOGLOBIN 17.2 uug (24.7-32.8); MEAN CORPUSCULAR HGB CONC 31 g/dL (32.3-35.6); MEAN CORPUSCULAR VOLUME 55.9 fL (75.5-95.3); MONOCYTES # (AUTO) 0.2 K/uL (0.1-1.30); MONOCYTES % (AUTO) 6.2 % (0.0-11.0); NEUTROPHILS % (AUTO) 50.6 % (38.5-71.5); PLATELET COUNT (AUTO) 191 K/uL (179-408); RED CELL DISTRIBUTION WIDTH 19.9 % (12.3-17.7)
[2023-05-16 07:10] LABS: DIFFERENTIAL COMMENT 1
[2023-05-16 07:16] LABS: ALBUMIN 3.4 g/dL (3.4-5.0); BILIRUBIN,TOTAL 0.8 mg/dL (0.2-1.0); CALCIUM 8.6 mg/dL (8.5-10.1); CREATININE 0.9 mg/dL (0.6-1.3); PHOSPHOROUS 2.5 mg/dL (2.5-4.9); POTASSIUM 3.6 mmol/L (3.5-5.1); TOTAL PROTEIN, SERUM 5.9 g/dL (6.4-8.2)
[2023-05-16 07:22] LABS: THYROID STIMULATING HORMONE 1.726 mIU/mL (0.358-3.740)
[2023-05-16] MEDS: ASCORBIC ACID 500 MG TABLET PO SCH (08:52)
[2023-05-16] MEDS: ASPIRIN 81 MG TAB.CHEW PO SCH (08:52)
[2023-05-16] MEDS ORDERED: ASCORBIC ACID 250 MG PO SCH (09:00)
[2023-05-16 10:40] VITALS: BP 129/62; TEMP 98; O2SAT 94
[2023-05-16] MEDS: IV NS 1000 ML 1,000 ML IV PRN (11:25)
[2023-05-16 15:06] VITALS: BP 120/68; TEMP 98.2; O2SAT 95
[2023-05-16] MEDS: MECLIZINE HCL 25 MG TABLET PO PRN (19:39)
[2023-05-16 20:01] VITALS: BP 124/60; TEMP 98; O2SAT 98
[2023-05-16 22:08] VITALS: BP_SYST 129; BP_SYST 140; BP_SYST 156; BP_DIAS 66; BP_DIAS 70; BP_DIAS 76
[2023-05-17] MEDS: IV NS 1000 ML 1,000 ML IV PRN ×2 (03:00→20:21)
[2023-05-17 05:34] VITALS: BP 135/66; TEMP 98; O2SAT 96
[2023-05-17] MEDS: PANTOPRAZOLE SODIUM 40 MG TABLET.DR PO SCH (06:03)
[2023-05-17 07:19] LABS: HEMOGLOBIN 8.3 g/dL (10.9-14.3); LYMPHOCYTES % (AUTO) 45.5 % (20.5-51.5); MEAN CORPUSCULAR HEMOGLOBIN 16.3 uug (24.7-32.8); MEAN CORPUSCULAR HGB CONC 30 g/dL (32.3-35.6); MONOCYTES # (AUTO) 0.3 K/uL (0.1-1.30); MONOCYTES % (AUTO) 7.2 % (0.0-11.0); NEUTROPHILS % (AUTO) 45.3 % (38.5-71.5); PLATELET COUNT (AUTO) 167 K/uL (179-408); RED BLOOD CELL COUNT(AUTO) 5.08 MIL/uL (3.63-4.92); RED CELL DISTRIBUTION WIDTH 20.2 % (12.3-17.7); WHITE BLOOD COUNT (AUTO) 4.5 K/uL (3.8-11.8)
[2023-05-17 07:21] LABS: DIFFERENTIAL COMMENT 1
[2023-05-17 07:47] LABS: CALCIUM 8.9 mg/dL (8.5-10.1); CREATININE 0.8 mg/dL (0.6-1.3); POTASSIUM 3.6 mmol/L (3.5-5.1)
[2023-05-17] MEDS: ASPIRIN 81 MG TAB.CHEW PO SCH (09:08)
[2023-05-17] MEDS: ASCORBIC ACID 500 MG TABLET PO SCH (09:08)
[2023-05-17 11:14] VITALS: BP 141/73; TEMP 98.5; O2SAT 94
[2023-05-17 15:11] VITALS: BP 122/60; TEMP 98.5; O2SAT 95
[2023-05-17 20:02] VITALS: BP 134/60; TEMP 98.2; O2SAT 97
[2023-05-17 21:00] VITALS: BP_SYST 133; BP_SYST 134; BP_SYST 145; BP_DIAS 60; BP_DIAS 65; BP_DIAS 73
[2023-05-18] VITALS (7 sets, daily range): BP systolic 128–153; BP diastolic 55–82; TEMP 97.5–98.8; O2SAT 92–97
[2023-05-18] MEDS: PANTOPRAZOLE SODIUM 40 MG TABLET.DR PO SCH (06:03)
[2023-05-18 07:46] LABS: BASOPHILS % (AUTO) 0.3 % (0.0-2.0); EOSINOPHILS # (AUTO) 0.1 K/uL (0.0-0.7); EOSINOPHILS % (AUTO) 2.1 % (0.0-7.0); HEMATOCRIT 26.7 % (31.2-41.9); HEMOGLOBIN 8.2 g/dL (10.9-14.3); LYMPHOCYTES # (AUTO) 2.1 K/uL (0.8-4.8); LYMPHOCYTES % (AUTO) 48.3 % (20.5-51.5); MEAN CORPUSCULAR HEMOGLOBIN 16.9 uug (24.7-32.8); MEAN CORPUSCULAR HGB CONC 31 g/dL (32.3-35.6); MEAN CORPUSCULAR VOLUME 55.2 fL (75.5-95.3); MONOCYTES # (AUTO) 0.3 K/uL (0.1-1.30); MONOCYTES % (AUTO) 5.9 % (0.0-11.0); NEUTROPHILS # (AUTO) 1.9 K/uL (1.8-8.9); NEUTROPHILS % (AUTO) 43.4 % (38.5-71.5); PLATELET COUNT (AUTO) 201 K/uL (179-408); RED BLOOD CELL COUNT(AUTO) 4.84 MIL/uL (3.63-4.92); RED CELL DISTRIBUTION WIDTH 19.9 % (12.3-17.7); WHITE BLOOD COUNT (AUTO) 4.4 K/uL (3.8-11.8)
[2023-05-18 07:57] LABS: DIFFERENTIAL COMMENT 1
[2023-05-18 09:04] LABS: CALCIUM 9.7 mg/dL (8.5-10.1); CREATININE 0.6 mg/dL (0.6-1.3); POTASSIUM 3.4 mmol/L (3.5-5.1)
[2023-05-18] MEDS: ASPIRIN 81 MG TAB.CHEW PO SCH (09:30)
[2023-05-18] MEDS: ASCORBIC ACID 500 MG TABLET PO SCH (09:30)
[2023-05-18] MEDS: MECLIZINE HCL 25 MG TABLET PO PRN (09:30)
[2023-05-19] VITALS (7 sets, daily range): BP systolic 143–157; BP diastolic 57–85; TEMP 98.3–98.4; O2SAT 94–97
[2023-05-19] MEDS: PANTOPRAZOLE SODIUM 40 MG TABLET.DR PO SCH (05:40)
[2023-05-19 06:13] LABS: *OCCULT BLOOD STOOL NEGATIVE (NEGATIVE)
[2023-05-19 07:07] LABS: BASOPHILS % (AUTO) 0.7 % (0.0-2.0); EOSINOPHILS # (AUTO) 0.1 K/uL (0.0-0.7); HEMATOCRIT 27.9 % (31.2-41.9); HEMOGLOBIN 8.5 g/dL (10.9-14.3); LYMPHOCYTES # (AUTO) 2.1 K/uL (0.8-4.8); LYMPHOCYTES % (AUTO) 40.5 % (20.5-51.5); MEAN CORPUSCULAR HEMOGLOBIN 16.7 uug (24.7-32.8); MEAN CORPUSCULAR HGB CONC 30 g/dL (32.3-35.6); MEAN CORPUSCULAR VOLUME 54.9 fL (75.5-95.3); MONOCYTES # (AUTO) 0.4 K/uL (0.1-1.30); MONOCYTES % (AUTO) 7.6 % (0.0-11.0); NEUTROPHILS # (AUTO) 2.5 K/uL (1.8-8.9); NEUTROPHILS % (AUTO) 49.2 % (38.5-71.5); PLATELET COUNT (AUTO) 224 K/uL (179-408); RED BLOOD CELL COUNT(AUTO) 5.08 MIL/uL (3.63-4.92); WHITE BLOOD COUNT (AUTO) 5.1 K/uL (3.8-11.8)
[2023-05-19 07:25] LABS: CALCIUM 9.9 mg/dL (8.5-10.1); CREATININE 0.7 mg/dL (0.6-1.3); POTASSIUM 3.7 mmol/L (3.5-5.1)
[2023-05-19 07:26] LABS: DIFFERENTIAL COMMENT 1
[2023-05-19] MEDS: ASPIRIN 81 MG TAB.CHEW PO SCH (09:13)
[2023-05-19] MEDS: ASCORBIC ACID 500 MG TABLET PO SCH (09:13)
[2023-05-19] MEDS ORDERED: MECL-159 PO (10:32)
[2023-05-19 10:56] LABS: LYMPHOCYTES % (MANUAL) 36 % (20-40); METAMYELOCYTES % 1 % (0-1); MONOCYTES % (MANUAL) 6 % (2-10); NEUTROPHILS % (MANUAL) 57 % (42-75); PLATELET ESTIMATE ADEQUATE
[2023-05-19 10:57] LABS: ANISOCYTOSIS 2+; HYPOCHROMASIA 2+
[2023-05-19 10:58] LABS: OVALOCYTES 1+; TEAR DROP CELLS 1+
[2023-05-20] MEDS ORDERED: LOSARTAN POTASSIUM 25 MG TABLET PO SCH (09:00)
== END 2023-05-19 13:45 | disposition home or self-care (01) | DRG 74 ==
LOC: ER 08:30 → TELE3 13:38 → MEDSURG3 05-18 10:44
PROVIDERS: ADMIT Internal Medicine; ATTEND Internal Medicine
DX: G90.8 Other disorders of autonomic nervous system (principal); H81.10 Benign paroxysmal vertigo, unspecified ear; D50.9 Iron deficiency anemia, unspecified; E04.1 Nontoxic single thyroid nodule; E03.9 Hypothyroidism, unspecified; R11.2 Nausea with vomiting, unspecified; R19.7 Diarrhea, unspecified; Z86.73 Personal history of transient ischemic attack (TIA), and cerebral infarction without residual deficits; M81.0 Age-related osteoporosis without current pathological fracture; K21.9 Gastro-esophageal reflux disease without esophagitis; M19.90 Unspecified osteoarthritis, unspecified site; M50.322 Other cervical disc degeneration at C5-C6 level; M48.02 Spinal stenosis, cervical region; Z79.83 Long term (current) use of bisphosphonates; Z88.2 Allergy status to sulfonamides; Z82.49 Family history of ischemic heart disease and other diseases of the circulatory system; Z90.49 Acquired absence of other specified parts of digestive tract; Z82.3 Family history of stroke; Z83.3 Family history of diabetes mellitus; R79.89 Other specified abnormal findings of blood chemistry; I11.9 Hypertensive heart disease without heart failure; R73.03 Prediabetes; R00.0 Tachycardia, unspecified
CPT/HCPCS: 36415; 70030-TC; 70450; 70496; 70551; 83550; 83690; 83735; 84100; 84443; 84484; 85025; 93005; G0378; J2405; J7040; J8499; J8597; Q9967

== ENCOUNTER 2023-07-16 23:21 | Emergency (ER) | payer BC, OTHER ==
[~2023-07-16] VITALS: Ht 162.6 cm; Wt 70.3 kg
[2023-07-16] MEDS ORDERED: ONDANSETRON 4 MG/2 ML VIAL ONE (23:39)
[2023-07-16] MEDS ORDERED: FAMOTIDINE. 20 MG/2 ML VIAL IV ONE ×2 (23:40→23:45)
[2023-07-16] MEDS ORDERED: KETOROLAC TROMETHAMINE 15 MG INJ ONE (23:40)
[2023-07-16] MEDS ORDERED: KETOROLAC TROMETHAMINE 15 MG INJ IVP ONE (23:45)
[2023-07-16] MEDS ORDERED: ONDANSETRON 4 MG/2 ML VIAL IV ONE (23:45)
[2023-07-16] MEDS ORDERED: IV NORMAL SALINE 1000 ML BAG IV ONE (23:45)
[2023-07-16 23:59] LABS: BASOPHILS % (AUTO) 0.3 % (0.0-2.0); EOSINOPHILS # (AUTO) 0.2 K/uL (0.0-0.7); EOSINOPHILS % (AUTO) 2.2 % (0.0-7.0); HEMATOCRIT 30.8 % (31.2-41.9); HEMOGLOBIN 9.1 g/dL (10.9-14.3); LYMPHOCYTES # (AUTO) 0.2 K/uL (0.8-4.8); LYMPHOCYTES % (AUTO) 2.2 % (20.5-51.5); MEAN CORPUSCULAR HEMOGLOBIN 16.3 uug (24.7-32.8); MEAN CORPUSCULAR HGB CONC 30 g/dL (32.3-35.6); MONOCYTES # (AUTO) 0.4 K/uL (0.1-1.30); MONOCYTES % (AUTO) 5.2 % (0.0-11.0); NEUTROPHILS # (AUTO) 6.5 K/uL (1.8-8.9); NEUTROPHILS % (AUTO) 90.1 % (38.5-71.5); PLATELET COUNT (AUTO) 216 K/uL (179-408); RED BLOOD CELL COUNT(AUTO) 5.59 MIL/uL (3.63-4.92); RED CELL DISTRIBUTION WIDTH 20.2 % (12.3-17.7); WHITE BLOOD COUNT (AUTO) 7.2 K/uL (3.8-11.8)
[2023-07-17 00:01] LABS: DIFFERENTIAL COMMENT 1
[2023-07-17 00:22] LABS: BILIRUBIN,DIRECT 0.3 mg/dL (0.0-0.2); CALCIUM 9.2 mg/dL (8.5-10.1); CREATININE 0.6 mg/dL (0.6-1.3); POTASSIUM 4.7 mmol/L (3.5-5.1); TOTAL PROTEIN, SERUM 7.1 g/dL (6.4-8.2)
[2023-07-17 01:04] LABS: *BILIRUBIN,URIN NEGATIVE (NEGATIVE); *BLOOD, URINE NEGATIVE (NEGATIVE); *CLARITY,URINE CLEAR (CLEAR); *COLOR,URINE YELLOW (YELLOW); *KETONES,URINE 2+ (NEGATIVE); *PROTEIN,URINE 2+ (NEGATIVE); LEUKOCYTE ESTERASE ,URINE NEGATIVE (NEGATIVE); NITRITE, URINE NEGATIVE (NEGATIVE); UGLUCOSE TRACE (NEGATIVE)
[2023-07-17] MEDS ORDERED: DICY10CA13 PO (01:16)
[2023-07-17] MEDS ORDERED: ONDA4TAB11 PO (01:16)
[2023-07-17 01:25] VITALS: BP 138/79; O2SAT 99
== END 2023-07-17 01:25 | disposition home or self-care (01) ==
LOC: ER 23:26
DX: R11.2 Nausea with vomiting, unspecified (principal); R19.7 Diarrhea, unspecified; R10.13 Epigastric pain; Z86.2 Personal history of diseases of the blood and blood-forming organs and certain disorders involving the immune mechanism; Z90.49 Acquired absence of other specified parts of digestive tract; Z88.2 Allergy status to sulfonamides; Z88.1 Allergy status to other antibiotic agents; Z79.82 Long term (current) use of aspirin; Z79.899 Other long term (current) drug therapy
CPT/HCPCS: 99284; 80076; 80048; 83690; 85025; 36415; 93005; 96374; 96375; 96361; 81003; J3490; J1885; J2405; J7040; A4606; A4663

== ENCOUNTER 2024-12-24 07:42 | Emergency (ER) | payer BC, OTHER ==
[~2024-12-24] VITALS: Ht 162.6 cm; Wt 72.6 kg
[~2024-12-24 07:42] MED LIST changes: +DICY10CA13 PO; +LORA0.5T48 PO; +ONDA4TAB11 PO
[2024-12-24 07:55] VITALS: O2SAT 98
[2024-12-24] MEDS ORDERED: NEOM10DR11 EACH EAR (08:04)
[2024-12-24] MEDS ORDERED: AMOX500T2 PO (08:04)
[2024-12-24] MEDS ORDERED: IBUPROFEN 600 MG TABLET ONE (08:07)
[2024-12-24] MEDS: IBUPROFEN 600 MG TABLET PO ONE (08:13)
== END 2024-12-24 08:13 | disposition home or self-care (01) ==
LOC: ER 07:42
DX: H60.93 Unspecified otitis externa, bilateral (principal); Z79.82 Long term (current) use of aspirin; Z79.899 Other long term (current) drug therapy; Z88.1 Allergy status to other antibiotic agents; Z88.2 Allergy status to sulfonamides; Z88.7 Allergy status to serum and vaccine; Z90.49 Acquired absence of other specified parts of digestive tract; Z86.69 Personal history of other diseases of the nervous system and sense organs; Z86.79 Personal history of other diseases of the circulatory system; Z87.19 Personal history of other diseases of the digestive system; Z87.448 Personal history of other diseases of urinary system
CPT/HCPCS: A4606; A4663

== ENCOUNTER 2025-05-23 15:13 | Inpatient (IN) | payer BC, OTHER ==
[~2025-05-23] VITALS: Ht 162.6 cm; Wt 74.8 kg
[~2025-05-23 15:13] MED LIST changes: +AMOX500T2 PO; +NEOM10DR11 EACH EAR
[2025-05-23] MEDS ORDERED: IBUPROFEN 800 MG TABLET ONE (16:35)
[2025-05-23] MEDS: IBUPROFEN 800 MG TABLET PO ONE (16:39)
[2025-05-23 16:57] LABS: CREATININE 0.8 mg/dL (0.6-1.3); SODIUM SERUM 136 mmol/L (136-145); UREA NITROGEN, BLOOD 16 mg/dL (7-18)
[2025-05-23 17:01] LABS: PLATELET COUNT (AUTO) 193 K/uL (179-408); RED BLOOD CELL COUNT(AUTO) 5.24 MIL/uL (3.63-4.92); RED CELL DISTRIBUTION WIDTH 20.8 % (12.3-17.7); WHITE BLOOD COUNT (AUTO) 6.7 K/uL (3.8-11.8)
[2025-05-23 17:13] LABS: ASPARTATE AMINOTRANSFERASE 17 U/L (15-37); TOTAL PROTEIN, SERUM 7.1 g/dL (6.4-8.2)
[2025-05-23] MEDS ORDERED: AMLO-212 PO (18:19)
[2025-05-23 18:41] LABS: BAND % (MANUAL) 1 % (0-10); EOSINOPHILS % (MANUAL) 1 % (0-8); LYMPHOCYTES % (MANUAL) 16 % (20-40); MONOCYTES % (MANUAL) 2 % (2-10); NEUTROPHILS % (MANUAL) 80 % (42-75); PLATELET ESTIMATE ADEQUATE
[2025-05-23] MEDS ORDERED: ONDANSETRON 4 MG/2 ML VIAL ONE (19:40)
[2025-05-23] MEDS ORDERED: MORPHINE SULFATE 4 MG/1 ML DISP.SYRIN ONE (19:41)
[2025-05-23] MEDS: ONDANSETRON 4 MG/2 ML VIAL IV ONE (19:42)
[2025-05-23] MEDS: MORPHINE SULFATE 4 MG/1 ML DISP.SYRIN IV ONE (19:43)
[2025-05-23] MEDS: IV NORMAL SALINE 1000 ML BAG IV ONE (19:43)
[2025-05-23 20:05] VITALS: BP 139/70
[2025-05-23] MEDS ORDERED: ONDANSETRON 4 MG/2 ML VIAL IV PRN (20:15)
[2025-05-23] MEDS ORDERED: MAGNESIUM HYDROXIDE 30 ML LIQUID UDC PO PRN (20:15)
[2025-05-23] MEDS ORDERED: AMLODIPINE 5 MG TABLET PO PRN (20:15)
[2025-05-23] MEDS ORDERED: MORPHINE SULFATE 2 MG/1 ML DISP.SYRIN IV PRN (20:15)
[2025-05-23 20:35] VITALS: BP 131/53; TEMP 98.3; O2SAT 97
[2025-05-23] MEDS: DOCUSATE SODIUM 100 MG CAPSULE PO SCH (21:32)
[2025-05-23] MEDS: ASPIRIN 81 MG TAB.CHEW PO SCH (21:32)
[2025-05-23] MEDS: ENOXAPARIN SODIUM 40 MG/0.4 ML DISP.SYRIN SQ SCH (21:33)
[2025-05-24 05:25] VITALS: BP 109/56; TEMP 98.8; O2SAT 95
[2025-05-24] MEDS: PANTOPRAZOLE SODIUM 40 MG TABLET.DR PO SCH (06:12)
[2025-05-24 07:58] LABS: IRON, SERUM 36.0 ug/dL (50-175)
[2025-05-24 08:00] VITALS: BP 132/58; TEMP 98.7; O2SAT 96
[2025-05-24 08:02] LABS: ASPARTATE AMINOTRANSFERASE 40.0 U/L (15-37); CREATININE 0.7 mg/dL (0.6-1.3); SODIUM SERUM 143.0 mmol/L (136-145); TOTAL PROTEIN, SERUM 6.4 g/dL (6.4-8.2); UREA NITROGEN, BLOOD 15.0 mg/dL (7-18)
[2025-05-24 08:03] LABS: PLATELET COUNT (AUTO) 153 K/uL (179-408); RED BLOOD CELL COUNT(AUTO) 5.31 MIL/uL (3.63-4.92); RED CELL DISTRIBUTION WIDTH 21.2 % (12.3-17.7); WHITE BLOOD COUNT (AUTO) 3.5 K/uL (3.8-11.8)
[2025-05-24] MEDS: LOSARTAN POTASSIUM 50 MG TABLET PO SCH (08:58)
[2025-05-24 09:24] LABS: NEUTROPHILS % (MANUAL) 55 % (42-75)
[2025-05-24 09:25] LABS: EOSINOPHILS % (MANUAL) 5 % (0-8); LYMPHOCYTES % (MANUAL) 31 % (20-40); MONOCYTES % (MANUAL) 9 % (2-10)
[2025-05-24 09:26] LABS: PLATELET ESTIMATE DECREASED
[2025-05-24] MEDS ORDERED: METF-440 PO (10:05)
[2025-05-24 11:50] VITALS: BP 129/59; TEMP 98.7; O2SAT 97
[2025-05-24 16:35] VITALS: BP 122/51; TEMP 99.6; O2SAT 96
[2025-05-24 16:39] VITALS: BP 122/51
[2025-05-24 16:40] VITALS: TEMP 99.6
[2025-05-24] MEDS: ACETAMINOPHEN 325 MG TABLET PO PRN (16:40)
[2025-05-25] MEDS ORDERED: ALENDRONATE SODIUM 70 MG TABLET PO SCH (07:00)
== END 2025-05-24 16:50 | disposition home or self-care (01) | DRG 864 ==
LOC: ER 15:13 → TELE3 20:03
PROVIDERS: ADMIT Nurse Practitioner Family; ATTEND Nurse Practitioner Family
DX: R50.83 Postvaccination fever (principal); I21.A1 Myocardial infarction type 2; E11.9 Type 2 diabetes mellitus without complications; E03.9 Hypothyroidism, unspecified; D64.9 Anemia, unspecified; E66.9 Obesity, unspecified; T50.B95A Adverse effect of other viral vaccines, initial encounter; Y84.8 Other medical procedures as the cause of abnormal reaction of the patient, or of later complication, without mention of misadventure at the time of the procedure; Y92.512 Supermarket, store or market as the place of occurrence of the external cause; Z90.49 Acquired absence of other specified parts of digestive tract; Z71.3 Dietary counseling and surveillance; Z68.28 Body mass index [BMI] 28.0-28.9, adult; Z79.84 Long term (current) use of oral hypoglycemic drugs; Z79.899 Other long term (current) drug therapy; Z82.49 Family history of ischemic heart disease and other diseases of the circulatory system; Z83.3 Family history of diabetes mellitus; Z79.83 Long term (current) use of bisphosphonates; Z88.2 Allergy status to sulfonamides; K21.9 Gastro-esophageal reflux disease without esophagitis
CPT/HCPCS: 36415; 70030-TC; 71045; 83550; 83735; 84100; 84484; 85651; 86140; 93307; A4606; A4663; G0378; J1650; J2270; J2405; J7040